=== PATIENT | male | born 1945 | race Caucasian/White ===

== ENCOUNTER 2018-07-18 11:33 | Inpatient (IN) ==
[2018-07-18] MEDS: Sod Chloride 0.9% Inj 1,000 ML IV.CONT SCH (11:59)
--- NOTE | 2018-07-18 12:04 | ED ---
HPI General Chief Complaint: Stroke Alert Stated Complaint: AMS Time Seen by Provider: 07/18/18 11:39 Source: patient Mode of arrival: EMS Limitations: altered mental status History of Present Illness HPI Narrative: 73-year-old male presents by ambulance. Last seen normal at 9: 30 PM last night. Patient is having difficulty answering questions. When you ask him what his name is it takes him 2 or 3 times and then he will say Fabrice. When you ask him to perform a task he starts asking you about something related to yourself and does not follow the command. Patient denies pain but is a poor historian on initial evaluation. Vitals were stable in route. Related Data Home Medications Medication Instructions Recorded Confirmed aspirin 81 mg PO DAILY 07/18/18 07/18/18 lisinopril 10 mg PO DAILY 07/18/18 07/18/18 metoprolol succinate 50 mg PO DAILY 07/18/18 07/18/18 nitroglycerin 0.4 mg SUBLINGUAL Q5-15M PRN 07/18/18 07/18/18 Allergies Allergy/AdvReac Type Severity Reaction Status Date / Time meperidine AdvReac Intermediate Nausea/Vomi Unverified 04/20/17 01:56 ting Review of Systems ROS Unobtainable ROS Unobtainable: unobtainable due to mental status PMFSH History History Provided By: Family Member (stroke, hypertension) Medical History Medical History CVA (cerebral vascular accident) (Acute) HTN (hypertension) (Acute) Heart attack (Acute) Surgical History Surgical History Hx of heart artery stent (Acute) Social History Social History Substance History: No History of Abuse Second Hand Smoke Exposure: Yes Smoking Status: Current every day smoker Tobacco Type: Cigarettes How Often Do You Have a Drink Containing Alcohol: Never Recent Out of Country Travel within the Last 8 Weeks: No Exam Narrative Exam Narrative: GENERAL: 73 y/o male in no apparent distress SKIN: Focused skin assessment warm/dry. HEAD: Atraumatic. Normocephalic. EYES: Pupils equal and round. No scleral icterus. No injection or drainage. ENT: No nasal bleeding or discharge. Mucous membranes pink and moist. NECK: Trachea midline. CARDIOVASCULAR: irregular rate and rhythm. RESPIRATORY: No accessory muscle use. Clear to auscultation. Breath sounds equal bilaterally. GASTROINTESTINAL: Abdomen soft, non-tender, nondistended. MUSCULOSKELETAL: No obvious deformities. No clubbing. No cyanosis. NEUROLOGICAL: Awake and alert to name. Motor grossly within normal limits. Patient having difficulty following questioning and you have to ask him multiple times Course Reevaluation(s) Reevaluation #1: arrives at bedside and states last seen normal last night at 9:30 PM. She states he was saying random comments when she would ask him how he was doing he was not acting him well so she called the ambulance. She states he has a history of stroke 3 years ago and has been off all of his medication for the past 5 days including his full dose aspirin. She was updated and agrees to plan Consultations Consultation #1: dr abdi states to check cta and perfusion with stroke alert Consultation #2: dr abdi updated about imaging and states to admit, check mris and give aspirin, will eval for other anticoagulation after mri Consultation #3: resident team agrees to admit Initial Documented Vital Signs Temperature 97.8 F 07/18/18 11:33 Pulse Rate 73 07/18/18 11:33 Respiratory Rate 19 07/18/18 11:33 Blood Pressure 152/93 H 07/18/18 11:33 Pulse Oximetry 94 L 07/18/18 11:33 Last Documented Vital Signs Temperature 97.8 F 07/18/18 11:33 Pulse Rate 72 07/18/18 13:52 Respiratory Rate 12 07/18/18 13:52 Blood Pressure 150/91 H 07/18/18 13:52 Pulse Oximetry 95 07/18/18 13:52 NIH Stroke Scale NIHSS Time Completed NIHSS Time Completed: 12:04 NIH Stroke Scale Level of Consciousness: 0-Alert Orientation Questions: 1-One task correct Responds to Commands: 1-One task correct Gaze Eye Movement: 0-Horizontal movement WNL Visual Pike: 0-No visual field defect Facial Movement: 0-Normal Motor Functions Arm LEFT: 0-No drift Motor Functions Arm RIGHT: 0-No drift Motor Functions Leg LEFT: 0-No drift Motor Functions Leg RIGHT: 0-No drift Limb Ataxia: 0-No ataxia Sensory Loss: 0-No sensory loss Best Language: 1-Mild aphasia Articulation: 0-Normal Extinction or Inattention Sensory: 0-Absent Total: 3 Medical Decision Making MDM Narrative Medical decision making narrative: Patient symptoms started last night at 930. Discussed with neurologist and stroke alert was called, will follow Medical Screen Exam Complete: Yes Emergency Medical Condition: Yes Differential Diagnosis Differential Diagnosis: Stroke, TIA, hyponatremia, UTI, hepatic encephalopathy Lab Data Lab results reviewed: Yes I reviewed the patient's lab results. Result diagrams: 07/18/18 11:45 07/18/18 11:45 Lab Results 07/18/18 07/18/18 07/18/18 Range/Units 11:45 11:45 11:45 WBC 8.7 (4.0-11.0) th/mm3 RBC 4.81 (4.50-5.90) mil/mm3 Hgb 15.0 (13.0-17.0) gm/dL POC Hgb (Calc) 14.6 (13.0-17.0) g/dL Hct 45.1 (39.0-51.0) % POC Hct 43.0 (39-51.0) % MCV 93.8 (80.0-100.0) fL MCH 31.2 (27.0-34.0) pg MCHC 33.2 (32.0-36.0) % RDW 14.4 (11.6-17.2) % Plt Count 278 (150-450) th/mm3 MPV 8.1 (7.0-11.0) fL Neut % (Auto) 76.2 H (16.0-70.0) % Lymph % (Auto) 14.3 (9.0-44.0) % [place] % (Auto) 7.2 (0.0-8.0) % Eos % (Auto) 1.7 (0.0-4.0) % Baso % (Auto) 0.6 (0.0-2.0) % Neut # (Auto) 6.6 (1.8-7.7) th/mm3 Lymph # (Auto) 1.3 (1.0-4.8) th/mm3 [place] # (Auto) 0.6 (0.0-0.9) th/mm3 Eos # (Auto) 0.1 (0.0-0.4) th/mm3 Baso # (Auto) 0.1 (0.0-0.2) th/mm3 WBC Differential . Differential Comment Auto diff final PT 10.8 (9.8-11.6) sec INR 1.1 Ratio APTT 30.6 (23.4-31.7) sec Fibrinogen 370 (227-377) mg/dL POC Sodium 143 (137-144) mmol/L Sodium 142 (136-145) meq/L POC Potassium 4.5 (3.6-5.0) mmol/L Potassium 4.5 (3.5-5.1) meq/L POC Chloride 103 (102-111) mmol/L Chloride 110 H (98-107) meq/L Carbon Dioxide 26.8 (21.0-32.0) meq/L Anion Gap 5 (5-15) meq/L POC BUN 13 (5-21) mg/dL BUN 14 (7-18) mg/dL Creatinine 0.94 (0.60-1.30) mg/dL POC Creatinine 1.0 (0.6-1.3) mg/dL Estimated GFR 79 L (>89) mL/min POC Glucose 86 (68-110) mg/dL Random Glucose 87 (74-106) mg/dL Calcium 8.1 L (8.5-10.1) mg/dL Ammonia (11-32) mcmol/L Total Creatine Kinase 82 (39-308) U/L Troponin I Less than 0.02 L (0.02-0.05) ng/mL Urine Color (Yellw/Straw) Urine Clarity (Clear) Urine pH (5.0-8.5) Ur Specific [place] (1.002-1.035) Urine Protein (Neg-Trace) mg/dL Urine Glucose (UA) (Negative) mg/dL Urine Ketones (Negative) mg/dL Urine Occult Blood (Negative) Urine Nitrate (Negative) Urine Bilirubin (Negative) Urine Urobilinogen (Less than 2) mg/dL Ur Leukocyte Esterase (Negative) Urine RBC (0-3) /hpf Urine WBC (0-5) /hpf Urine Bacteria (None) /hpf Micro UA Comment Ur Microscopic Review Urine Culture Comments Urine Opiates Screen (Neg) Ur Barbiturates Screen (Neg) Ur Amphetamines Screen (Neg) U Benzodiazepines Scrn (Neg) Urine Cocaine Screen (Neg) U Cannabinoids Screen (Neg) Blood Type Blood Type Recheck Antibody Screen 07/18/18 07/18/18 07/18/18 Range/Units 11:45 12:36 Unknown WBC (4.0-11.0) th/mm3 RBC (4.50-5.90) mil/mm3 Hgb (13.0-17.0) gm/dL POC Hgb (Calc) (13.0-17.0) g/dL Hct (39.0-51.0) % POC Hct (39-51.0) % MCV (80.0-100.0) fL MCH (27.0-34.0) pg MCHC (32.0-36.0) % RDW (11.6-17.2) % Plt Count (150-450) th/mm3 MPV (7.0-11.0) fL Neut % (Auto) (16.0-70.0) % Lymph % (Auto) (9.0-44.0) % [place] % (Auto) (0.0-8.0) % Eos % (Auto) (0.0-4.0) % Baso % (Auto) (0.0-2.0) % Neut # (Auto) (1.8-7.7) th/mm3 Lymph # (Auto) (1.0-4.8) th/mm3 [place] # (Auto) (0.0-0.9) th/mm3 Eos # (Auto) (0.0-0.4) th/mm3 Baso # (Auto) (0.0-0.2) th/mm3 WBC Differential Differential Comment PT (9.8-11.6) sec INR Ratio APTT (23.4-31.7) sec Fibrinogen (227-377) mg/dL POC Sodium (137-144) mmol/L Sodium (136-145) meq/L POC Potassium (3.6-5.0) mmol/L Potassium (3.5-5.1) meq/L POC Chloride (102-111) mmol/L Chloride (98-107) meq/L Carbon Dioxide (21.0-32.0) meq/L Anion Gap (5-15) meq/L POC BUN (5-21) mg/dL BUN (7-18) mg/dL Creatinine (0.60-1.30) mg/dL POC Creatinine (0.6-1.3) mg/dL Estimated GFR (>89) mL/min POC Glucose (68-110) mg/dL Random Glucose (74-106) mg/dL Calcium (8.5-10.1) mg/dL Ammonia 14 (11-32) mcmol/L Total Creatine Kinase (39-308) U/L Troponin I (0.02-0.05) ng/mL Urine Color (Yellw/Straw) Urine Clarity (Clear) Urine pH (5.0-8.5) Ur Specific [place] (1.002-1.035) Urine Protein (Neg-Trace) mg/dL Urine Glucose (UA) (Negative) mg/dL Urine Ketones (Negative) mg/dL Urine Occult Blood (Negative) Urine Nitrate (Negative) Urine Bilirubin (Negative) Urine Urobilinogen (Less than 2) mg/dL Ur Leukocyte Esterase (Negative) Urine RBC (0-3) /hpf Urine WBC (0-5) /hpf Urine Bacteria (None) /hpf Micro UA Comment Ur Microscopic Review Urine Culture Comments Urine Opiates Screen Neg (Neg) Ur Barbiturates Screen Neg (Neg) Ur Amphetamines Screen Neg (Neg) U Benzodiazepines Scrn Neg (Neg) Urine Cocaine Screen Neg (Neg) U Cannabinoids Screen Neg (Neg) Blood Type O Negative Blood Type Recheck Required Antibody Screen Negative 07/18/18 Range/Units Unknown WBC (4.0-11.0) th/mm3 RBC (4.50-5.90) mil/mm3 Hgb (13.0-17.0) gm/dL POC Hgb (Calc) (13.0-17.0) g/dL Hct (39.0-51.0) % POC Hct (39-51.0) % MCV (80.0-100.0) fL MCH (27.0-34.0) pg MCHC (32.0-36.0) % RDW (11.6-17.2) % Plt Count (150-450) th/mm3 MPV (7.0-11.0) fL Neut % (Auto) (16.0-70.0) % Lymph % (Auto) (9.0-44.0) % [place] % (Auto) (0.0-8.0) % Eos % (Auto) (0.0-4.0) % Baso % (Auto) (0.0-2.0) % Neut # (Auto) (1.8-7.7) th/mm3 Lymph # (Auto) (1.0-4.8) th/mm3 [place] # (Auto) (0.0-0.9) th/mm3 Eos # (Auto) (0.0-0.4) th/mm3 Baso # (Auto) (0.0-0.2) th/mm3 WBC Differential Differential Comment PT (9.8-11.6) sec INR Ratio APTT (23.4-31.7) sec Fibrinogen (227-377) mg/dL POC Sodium (137-144) mmol/L Sodium (136-145) meq/L POC Potassium (3.6-5.0) mmol/L Potassium (3.5-5.1) meq/L POC Chloride (102-111) mmol/L Chloride (98-107) meq/L Carbon Dioxide (21.0-32.0) meq/L Anion Gap (5-15) meq/L POC BUN (5-21) mg/dL BUN (7-18) mg/dL Creatinine (0.60-1.30) mg/dL POC Creatinine (0.6-1.3) mg/dL Estimated GFR (>89) mL/min POC Glucose (68-110) mg/dL Random Glucose (74-106) mg/dL Calcium (8.5-10.1) mg/dL Ammonia (11-32) mcmol/L Total Creatine Kinase (39-308) U/L Troponin I (0.02-0.05) ng/mL Urine Color Yellow (Yellw/Straw) Urine Clarity Clear (Clear) Urine pH 7.0 (5.0-8.5) Ur Specific [place] 1.054 H (1.002-1.035) Urine Protein Negative (Neg-Trace) mg/dL Urine Glucose (UA) Negative (Negative) mg/dL Urine Ketones Negative (Negative) mg/dL Urine Occult Blood Negative (Negative) Urine Nitrate Negative (Negative) Urine Bilirubin Negative (Negative) Urine Urobilinogen 4 or greater (Less than 2) mg/dL Ur Leukocyte Esterase Small H (Negative) Urine RBC 8 H (0-3) /hpf Urine WBC 8 H (0-5) /hpf Urine Bacteria Rare H (None) /hpf Micro UA Comment Cath-culture ind Ur Microscopic Review Not Reportable Urine Culture Comments Cath-cult indicated Urine Opiates Screen (Neg) Ur Barbiturates Screen (Neg) Ur Amphetamines Screen (Neg) U Benzodiazepines Scrn (Neg) Urine Cocaine Screen (Neg) U Cannabinoids Screen (Neg) Blood Type Blood Type Recheck Antibody Screen Imaging Data Attestation: I personally reviewed and interpreted this imaging study as follows : Radiologist's impression: Chest X-Ray 07/18/18 11:41 CONCLUSION: Chronic interstitial changes within the parenchyma and cardiomegaly. No acute abnormality. Head CT 07/18/18 11:41 CONCLUSION: 1. Microvascular ischemic demyelinative change. No acute abnormality identified by noncontrast CT imaging. Report was called by [Dr. Lobo Gauthier to Dr. Mccarthy at 12:12 PM] Head CTA 07/18/18 11:41 CONCLUSION: 1. No evidence of carotid/vertebral stenosis or occlusion 2. Nonspecific mediastinal lymphadenopathy. 3. Emphysematous changes within the visualized lung apices. Report was called by Dr. Dickerson] to Dr. Abdi at 12:30 PM on 07/18/2018. Neck CTA 07/18/18 11:41 CONCLUSION: No carotid stenosis CT CAD 07/18/18 11:42 CONCLUSION: Physiological brain perfusion parameters with RAPID analysis as above. Study demonstrates a small area of elevated mean cortical transit time in the right posterior parietal cortex. This would indicate a small area of extremely cortex correspond to this region. The decision for consideration of therapy is multi factorial and multi disciplinary relying on subjective and objective clinical data. This data is not construed or intended to be the sole determinant of treatment eligibility. Discharge Plan Discharge Disposition Patient Disposition: 30 Still Patient Discharge Details Diagnosis: Altered mental status, Speech abnormality, Atrial flutter Physicians Team ED Provider: Kellie Carrera Primary Care Provider: UNKNOWN, Other Providers: Yunior Abdi Rxs /Orders / Referrals /Forms Prescriptions: No Action metoprolol succinate 50 mg Tablet Extended Release 24 Hr 50 mg PO DAILY RF: 0 lisinopril 10 mg Tablet 10 mg PO DAILY RF: 0 nitroglycerin 0.4 mg Tablet, Sublingual 0.4 mg SUBLINGUAL Q5-15M PRN (Reason: Chest Pain) RF: 0 aspirin 81 mg Tablet,Chewable 81 mg PO DAILY RF: 0 Status ED Status: Admitted Patient
[2018-07-18 12:12] LABS: Baso # (Auto) 0.1 th/mm3 (0.0-0.2); Baso % (Auto) 0.6 % (0.0-2.0); Eos # (Auto) 0.1 th/mm3 (0.0-0.4); Eos % (Auto) 1.7 % (0.0-4.0); Hematocrit 45.1 % (39.0-51.0); Lymph # (Auto) 1.3 th/mm3 (1.0-4.8); Lymph % (Auto) 14.3 % (9.0-44.0); Mean Corpuscular HGB Conc 33.2 % (32.0-36.0); Mean Corpuscular Hemoglobin 31.2 pg (27.0-34.0); Mean Corpuscular Volume 93.8 fL (80.0-100.0); Mean Platelet Volume 8.1 fL (7.0-11.0); Mono # (Auto) 0.6 th/mm3 (0.0-0.9); Mono % (Auto) 7.2 % (0.0-8.0); Neut # (Auto) 6.6 th/mm3 (1.8-7.7); Neut % (Auto) 76.2 % (16.0-70.0); Platelet Count 278 th/mm3 (150-450); Red Blood Count 4.81 mil/mm3 (4.50-5.90); Red Cell Distribution Width 14.4 % (11.6-17.2); White Blood Count 8.7 th/mm3 (4.0-11.0)
--- NOTE | 2018-07-18 12:16 | CT ---
EXAM DATE: 07/18/2018 12:07 PM EST AGE/SEX: 73 years / Male INDICATIONS: Stroke alert, confusion. CLINICAL DATA: This is the patient's initial encounter. Patient reports that signs and symptoms have been present for 1 day and indicates a pain score of Nonresponsive. MEDICAL/SURGICAL HISTORY: Non-responsive. Non-responsive. RADIATION DOSE: 40.82 CTDI (mGy) COMPARISON: C, CTA HEAD W CONTRAST W 3D, 07/18/2018. . TECHNIQUE: CT of the head without contrast. Using automated exposure control and adjustment of the mA and/or kV according to patient size, radiation dose was kept as low as reasonably achievable to ob tain optimal diagnostic quality images. DICOM format image data is available electronically for revi ew and comparison. FINDINGS: Cerebrum: The ventricles are normal for age. No evidence of midline shift, mass lesion, hemorrhage or acute infarction. No extraaxial fluid collections are seen. There is decreased attenuation in the periventricular white matter suggesting microvascular ischemic demyelinative change. Posterior Fossa: The cerebellum and brainstem are intact. The 4th ventricle is midline. The cerebe llopontine angle is unremarkable. Extracranial: The visualized portion of the orbits is intact. Skull: The calvaria is intact. No evidence of skull fracture. CONCLUSION: 1. Microvascular ischemic demyelinative change. No acute abnormality identified by noncontrast CT im aging. Report was called by [Dr. Lobo Gauthier to Dr. Mccarthy at 12:12 PM] Electronically signed by: Darryl Gauthier MD 07/18/2018 12:15 PM EST
[2018-07-18 12:24] LABS: Activated Partial Thrombo Time 30.6 sec (23.4-31.7); INR 1.1 Ratio; Prothrombin Time 10.8 sec (9.8-11.6)
[2018-07-18 12:28] LABS: Anion Gap 5 meq/L (5-15); Blood Urea Nitrogen 14 mg/dL (7-18); Calcium 8.1 mg/dL (8.5-10.1); Carbon Dioxide 26.8 meq/L (21.0-32.0); Chloride 110 meq/L (98-107); Glomerular Filtration Rate 79 mL/min (>89); Glucose,Random 87 mg/dL (74-106); Potassium 4.5 meq/L (3.5-5.1); Sodium 142 meq/L (136-145)
--- NOTE | 2018-07-18 12:32 | CT ---
EXAM DATE: 07/18/2018 12:23 PM EST AGE/SEX: 73 years / Male INDICATIONS: Stroke alert, confusion. CLINICAL DATA: This is the patient's initial encounter. Patient reports that signs and symptoms have been present for 1 day and indicates a pain score of Nonresponsive. MEDICAL/SURGICAL HISTORY: Non-responsive. Non-responsive. RADIATION DOSE: 314.22 CTDI (mGy) COMPARISON: No prior exams available for comparison. TECHNIQUE: CT of the head after intravenous administration of 40 ml Visipaque 320 (iodixanol) nonio sae water-soluble contrast as a single exam dose. Using automated exposure control and adjustment of the mA and/or kV according to patient size, radiation dose was kept as low as reasonably achievable to obtain optimal diagnostic quality images. DICOM format image data is available electronically for review and comparison. FINDINGS: 1. CBF (<30%) Volume (ml): 0ml 2. Perfusion (Tmax>6.0s) Volume (ml): 29ml 3. Mismatch Volume (ml) (Tmax>6.0 - CBF): 29ml CONCLUSION: Physiological brain perfusion parameters with RAPID analysis as above. Study demonstrates a small are a of elevated mean cortical transit time in the right posterior parietal cortex. This would indicate a small area of extremely cortex correspond to this region. The decision for consideration of therapy is multi factorial and multi disciplinary relying on subjec tive and objective clinical data. This data is not construed or intended to be the sole determinant of treatment eligibility. Electronically signed by: Darryl Gauthier MD 07/18/2018 12:31 PM EST
--- NOTE | 2018-07-18 12:35 | CT ---
EXAM DATE: 07/18/2018 12:26 PM EST AGE/SEX: 73 years / Male INDICATIONS: Stroke alert, confusion. CLINICAL DATA: This is the patient's initial encounter. Patient reports that signs and symptoms have been present for 1 day and indicates a pain score of Nonresponsive. MEDICAL/SURGICAL HISTORY: Non-responsive. Non-responsive. RADIATION DOSE: 28.68 CTDI (mGy) COMPARISON: [facility] – [place], [place], CT HEAD W/O CONTRAST, 07/18/2018. . TECHNIQUE: Volumetric scanning was performed using a multi-row detector CT scanner during bolus infu williams of 60 ml Visipaque 320 (iodixanol) nonionic water-soluble contrast as a cumulative dose for mul tiple exams. The data was post processed with a variety of visualization algorithms including full volume maximum intensity projection, multi-planar sliding thin slab reformation, curved planar reform ation, and surface rendering techniques. Using automated exposure control and adjustment of the mA a nd/or kV according to patient size, radiation dose was kept as low as reasonably achievable to obtain optimal diagnostic quality images. DICOM format image data is available electronically for review a nd comparison. FINDINGS: There is excellent visualization of the major intracranial arteries out to the second-order branch ve ssels. There is no evidence for aneurysm, vessel truncation or stenosis, and no evidence for vascula r malformation. There is a patent left posterior communicating artery. Emphysematous changes are note d within the visualized lung apices. Nonspecific mediastinal lymphadenopathy is also noted. CONCLUSION: 1. No evidence of carotid/vertebral stenosis or occlusion 2. Nonspecific mediastinal lymphadenopathy. 3. Emphysematous changes within the visualized lung apices. Report was called by Dr. Dickerson] to Dr. Copeland at 12:30 PM on 07/18/2018. Electronically signed by: Artem Dickerson MD 07/18/2018 12:34 PM EST
--- NOTE | 2018-07-18 12:46 | XR ---
EXAM DATE: 07/18/2018 12:42 PM EST AGE/SEX: 73 years / Male INDICATIONS: Stroke alert, slurred speech, weakness, confusion. CLINICAL DATA: This is the patient's initial encounter. Patient reports that signs and symptoms have been present for 1 day and indicates a pain score of 0/10. MEDICAL/SURGICAL HISTORY: None. None. COMPARISON: No prior exams available for comparison. FINDINGS: The heart is enlarged. There are chronic appearing interstitial changes within the parenchyma. No ple ural effusion is seen. Visualized bony structures are grossly intact. CONCLUSION: Chronic interstitial changes within the parenchyma and cardiomegaly. No acute abnormality. Electronically signed by: Darryl Gauthier MD 07/18/2018 12:44 PM EST
[2018-07-18 12:51] LABS: Creatine Kinase 82 U/L (39-308)
--- NOTE | 2018-07-18 13:13 | CT ---
EXAM DATE: 07/18/2018 1:05 PM EST AGE/SEX: 73 years / Male INDICATIONS: Confusion CLINICAL DATA: This is the patient's initial encounter. Patient reports that signs and symptoms have been present for 1 day and indicates a pain score of Nonresponsive. MEDICAL/SURGICAL HISTORY: Non-responsive. Non-responsive. RADIATION DOSE: 28.68 CTDI (mGy) ; Combined studies COMPARISON: No prior exams available for comparison. TECHNIQUE: Volumetric scanning was performed using a multirow detector CT scanner during bolus infus ion of 60 ml Visipaque 320 (iodixanol) nonionic water-soluble contrast as a cumulative dose for mult iple exams. The data was postprocessed with a variety of visualization algorithms including full-vo lume maximum intensity projection, multiplanar sliding thin-slab reformation, curved-planar reformati on, and surface-rendering techniques. Using automated exposure control and adjustment of the mA and/ or kV according to patient size, radiation dose was kept as low as reasonably achievable to obtain op timal diagnostic quality images. DICOM format image data is available electronically for review and comparison. Percent stenosis is calculated using the diameter of the stenotic region over the diameter of the nor mal distal internal carotid artery. FINDINGS: Aortic Arch: Truncus arch anatomy identified. No significant arch vessel stenosis. Right Carotid: The common carotid artery is intact. The carotid bulb has a normal configuration wit hout ulceration or narrowing. The internal carotid artery lumen is smooth without stenosis. The ext ernal carotid artery is intact. Left Carotid: The common carotid artery is intact. The carotid bulb has a normal configuration with out ulceration or narrowing. The internal carotid artery lumen is smooth without stenosis. The exte rnal carotid artery is intact. Vertebrals: The vertebral arteries have a symmetric diameter. No stenotic lesions are seen. CONCLUSION: No carotid stenosis Electronically signed by: Richi Skinner MD 07/18/2018 1:11 PM EST
[2018-07-18] MEDS ORDERED: Aspirin 325 MG Tablet PO ONE ×2 (13:19→13:21)
[2018-07-18 13:50] LABS: Bacteria,Urine Rare /hpf; Bilirubin,Urine Negative (Negative); Clarity,Urine Clear (Clear); Color,Urine Yellow (Yellw/Straw); Glucose,Urine (UA) Negative (Negative); Leukocyte Esterase,Urine Small (Negative); Nitrite,Urine Negative (Negative); Specific Gravity,Urine 1.054 (1.002-1.035); Urobilinogen,Urine 4 or Greater mg/dL (Less than 2)
[2018-07-18 13:51] LABS: Amphetamine Screen,Urine Neg (Neg); Barbiturate Screen,Urine Neg (Neg); Cannabinoid Screen,Urine Neg (Neg); Cocaine Screen,Urine Neg (Neg)
[2018-07-18 13:52] LABS: Opiate Screen,Urine Neg (Neg)
--- NOTE | 2018-07-18 14:22 | P.HPFP ---
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 History is provided by as the patient is acutely confused. He responds to questions but the answers are inappropriate. Patient was in his normal state of health at 9:30 PM when his last saw him. She reports that he woke up around 8 AM and appeared to be normal when the went back into his bedroom about 10:30 AM he just kept repeating "Are you okay?" did not notice any other residual deficits. Patient had a stroke 4 years ago with residual deficit of some slurred speech. He has had 4 myocardial infarctions with the last one being 8-10 years ago with an unknown arrhythmia. 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 He has been out of his medications for about 5 days. Primary care Provider: [facility] in [place] PMHx: CVA IA osteoarthritis of spine and chronic pain HTN HLD PSurgHx: Emergency hernia surgery 2 years ago Back surgery at age 40 Meds: Plavix Statin BP meds Allegies: Demerol PFamHx: Mother - hx of polio, of a CVA Father - polio SocHx: Semi-retired on board of [employer] Lives in [place] Last long trip in November EtOH - 1 drink/mo Tpbacco - 1/2ppd x40 years Drugs - denies <Ct Braswell - 07/18/18 14:48> - Diagnosis (1) Altered mental status (2) Hypertension (3) Hyperlipidemia (4) Atrial flutter <Kev Barajas - 07/18/18 19:37> (1) Altered mental status (2) Hypertension (3) Hyperlipidemia (4) Atrial flutter <Ct Braswell 07/18/18 15:33> Inpatient Certification: I certify that the inpatient services were ordered in accordance with Medicare regulations governing the order. This includes certification that hospital inpatient services are reasonable and necessary and in the case of services not specified as inpatient-only under 42 CFR 419.22(n), that they are appropriately provided as inpatient services in accordance to with the 2-midnight benchmark under 43 CFR 412.3(e) <Kev Barajas - 07/18/18 19:37> I certify that the inpatient services were ordered in accordance with Medicare regulations governing the order. This includes certification that hospital inpatient services are reasonable and necessary and in the case of services not specified as inpatient-only under 42 CFR 419.22(n), that they are appropriately provided as inpatient services in accordance to with the 2-midnight benchmark under 43 CFR 412.3(e) <Ct Braswell - 07/18/18 14:22> Review of Systems unobtainable due to mental status <Ct Braswell - 07/18/18 15:01> PMFSH - History History Provided By: Family Member (stroke, hypertension) <Ct Braswell - 07/18/18 14:22> - Medical History Medical History: Medical History (Last Updated 07/18/18 @ 12:17 by Maral Heath) CVA (cerebral vascular accident) HTN (hypertension) Heart attack <Kev Barajas - 07/18/18 19:37> Medical History (Last Updated 07/18/18 @ 12:17 by Maral Heath) CVA (cerebral vascular accident) HTN (hypertension) Heart attack <Ct Braswell - 07/18/18 14:22> - Surgical History Surgical History: Surgical History (Last Updated 07/18/18 @ 12:17 by Maral Heath) Hx of heart artery stent <Kev Barajas - 07/18/18 19:37> Surgical History (Last Updated 07/18/18 @ 12:17 by Maral Heath) Hx of heart artery stent <Ct Braswell - 07/18/18 14:22> - Social History I have reviewed the patient's Social History: Yes <Ct Braswell 15:01> - Tobacco History Second Hand Smoke Exposure: Yes <Ct Braswell - 07/18/18 14:22> Tobacco Use In Past 30 Days: Yes <Ct Braswell - 07/18/18 14:22> Smoking Status: Current every day smoker <Ct Braswell - 07/18/18 14:22> Tobacco Type: Cigarettes <Ct Braswell - 07/18/18 14:22> - Alcohol History How Often Do You Have a Drink Containing Alcohol: Never <Ct Braswell - 07/18/18 14:22> - Substance Use History Substance History: No History of Abuse <FrenchCt Lamar - 07/18/18 14:22> - Travel History History of Recent Travel: No <IrvinjeanCt Willard - 07/18/18 15:01> Recent Travel Out of the Country Within the Last 8 Weeks: No <IrvinjeanCt Lamar [place] 07/18/18 14:22> - Immunization History Tetanus Immunization: Unsure <IrvinjeanCt Lamar - 07/18/18 14:22> Medications and Allergies Allergies Allergy/AdvReac Type Severity Reaction Status Date / Time meperidine AdvReac Intermediate Nausea/Vomi Verified 07/18/18 16:02 ting <Kev Barajas - 07/18/18 19:37> Home Medications Medication Instructions Recorded Confirmed Type aspirin 81 mg PO DAILY 07/18/18 07/18/18 History lisinopril 10 mg PO DAILY 07/18/18 07/18/18 History metoprolol succinate 50 mg PO DAILY 07/18/18 07/18/18 History nitroglycerin 0.4 mg SUBLINGUAL Q5-15M PRN 07/18/18 07/18/18 History <Kev Barajas - 07/18/18 19:37> Active Medications: Active Medications Acetaminophen (Tylenol) 650 mg PO Q4H PRN PRN Reason: Temp > 100.4 Apixaban (Eliquis) 2.5 mg PO BID CHLOÉ Aspirin (Ecotrin) 81 mg PO DAILY CHLOÉ Sodium Chloride (Ns Inj) 1,000 mls @ 70 mls/hr IV.CONT .[id number] CHLOÉ Last Admin: 07/18/18 11:59 Dose: 70 mls/hr Metoprolol Succinate (Toprol Xl) 50 mg PO DAILY [facility] Last Admin: 07/18/18 16:46 Dose: 50 mg Ondansetron HCl (Zofran Inj) 4 mg IV.PUSH Q6H PRN PRN Reason: NAUSEA OR VOMITING Senna/Docusate Sodium (Devi-Colace) 1 tab PO BID [facility] <Kev Barajas - 07/18/18 19:37> Active Medications Sodium Chloride (Ns Inj) 1,000 mls @ 70 mls/hr IV.CONT .[id number] [facility] Last Admin: 07/18/18 11:59 Dose: 70 mls/hr Ceftriaxone Sodium 1,000 mg/ (Sodium Chloride) 100 mls @ 200 mls/hr IV.SIG ONCE ONE Stop: 07/18/18 14:26 <Ct Braswell 07/18/18 14:22> Exam Vital signs: Vital Signs 07/18/18 11:33 07/18/18 12:15 07/18/18 13:52 Temperature 97.8 F Pulse Rate 73 72 72 Respiratory Rate 19 17 12 Blood Pressure 152/93 H 164/99 H 150/91 H Pulse Oximetry 94 L 95 95 07/18/18 16:48 Temperature 97.9 F Pulse Rate 69 Respiratory Rate 18 Blood Pressure 160/88 H Pulse Oximetry 99 Intake & Output 07/18/18 07/18/18 07/19/18 06:59 18:59 06:59 Intake Total 100 / 100 Balance 100 / 100 Weight 84.1 kg Intake: IV 100 / 100 Rocephin Inj 1,000 MG In NS Inj 100 / 100 100 ML @ 200 mls/hr IV.SIG ONCE ONE Rx#:[id number] <Kev Barajas - 07/18/18 19:37> Vital Signs 07/18/18 11:33 07/18/18 12:15 07/18/18 13:52 Temperature 97.8 F Pulse Rate 73 72 72 Respiratory Rate 19 17 12 Blood Pressure 152/93 H 164/99 H 150/91 H Pulse Oximetry 94 L 95 95 Intake & Output 07/17/18 07/18/18 07/18/18 18:59 06:59 18:59 Weight 84.1 kg <Ct Braswell - 07/18/18 14:22> Narrative: GENERAL: well developed, NAD. NEUROLOGICAL: Speech- Fluent. No dysarthria or dysphasia. Poor comprehension. Cranial nerves- Patient unable to follow commands for full neuro exam. Motor/sensory/reflexes- Face- No facial droop. No tongue deviation. Extremities- Moves all extremities. Patient unable to follow commands for strength testing. Pronator drift test-Patient unable to follow commands Rapid alternating movements-Patient unable to follow commands No hemispace neglect. Unable to repeat phrases. EYES: PERRLA. EOMI. Lids and conjunctivae reveal no gross abnormality. No scleral itcterus. ENT: Hearing adequate. MMM. OP/OC clear. No cervical or supraclavicular LAD. RESPIRATORY: Decreased breath sounds as patient is unable to follow commands to take deep breaths CARDIOVASCULAR: RRR, no m/r/g. Radial and DP pulses 2+ and symmetric bilaterally. Brisk capillary refill. ABDOMEN: S/NT/ND. Bowel sounds present. No masses or pulsations present. No hepatosplenomegaly. EXTREMITIES: No remarkable dependent edema or varicosities. No clubbing, cyanosis, or erythema. BACK: Large mass in the central portion of his back ( reports this is not new and has been present since his back surgery at age 40) MUSCULOSKELETAL: No calf tenderness. SKIN: Adequate skin turgor. <Ct Braswell - 07/18/18 15:01> Results - Labs Result diagrams: 07/18/18 11:45 07/18/18 11:45 <Kev Barajas - 07/18/18 19:37> Abnormal lab results 07/18/18 07/18/18 07/18/18 Range/Units 11:45 11:45 Unknown Neut % (Auto) 76.2 H (16.0-70.0) % Chloride 110 H (98-107) meq/L Estimated GFR 79 L (>89) mL/min Calcium 8.1 L (8.5-10.1) mg/dL Troponin I Less than 0.02 L (0.02-0.05) ng/mL Ur Specific [place] 1.054 H (1.002-1.035) Ur Leukocyte Esterase Small H (Negative) Urine RBC 8 H (0-3) /hpf Urine WBC 8 H (0-5) /hpf Urine Bacteria Rare H (None) /hpf Short CBC 07/18/18 Range/Units 11:45 WBC 8.7 (4.0-11.0) th/mm3 Hgb 15.0 (13.0-17.0) gm/dL Hct 45.1 (39.0-51.0) % Plt Count 278 (150-450) th/mm3 BMP 07/18/18 11:45 Sodium 142 Potassium 4.5 Chloride 110 H Carbon Dioxide 26.8 BUN 14 Creatinine 0.94 Calcium 8.1 L Cardiac Enzymes 07/18/18 Range/Units 11:45 Total Creatine Kinase 82 (39-308) U/L Troponin I Less than 0.02 L (0.02-0.05) ng/mL Urine 07/18/18 Range/Units Unknown Urine Color Yellow (Yellw/Straw) Urine Clarity Clear (Clear) Urine pH 7.0 (5.0-8.5) Ur Specific [place] 1.054 H (1.002-1.035) Urine Protein Negative (Neg-Trace) mg/dL Urine Glucose (UA) Negative (Negative) mg/dL <Kev Barajas K - 07/18/18 19:37> Abnormal lab results 07/18/18 07/18/18 07/18/18 Range/Units 11:45 11:45 Unknown Neut % (Auto) 76.2 H (16.0-70.0) % Chloride 110 H (98-107) meq/L Estimated GFR 79 L (>89) mL/min Calcium 8.1 L (8.5-10.1) mg/dL Troponin I Less than 0.02 L (0.02-0.05) ng/mL Ur Specific [place] 1.054 H (1.002-1.035) Ur Leukocyte Esterase Small H (Negative) Urine RBC 8 H (0-3) /hpf Urine WBC 8 H (0-5) /hpf Urine Bacteria Rare H (None) /hpf Short CBC 07/18/18 Range/Units 11:45 WBC 8.7 (4.0-11.0) th/mm3 Hgb 15.0 (13.0-17.0) gm/dL Hct 45.1 (39.0-51.0) % Plt Count 278 (150-450) th/mm3 BMP 07/18/18 11:45 Sodium 142 Potassium 4.5 Chloride 110 H Carbon Dioxide 26.8 BUN 14 Creatinine 0.94 Calcium 8.1 L Cardiac Enzymes 07/18/18 Range/Units 11:45 Total Creatine Kinase 82 (39-308) U/L Troponin I Less than 0.02 L (0.02-0.05) ng/mL Urine 07/18/18 Range/Units Unknown Urine Color Yellow (Yellw/Straw) Urine Clarity Clear (Clear) Urine pH 7.0 (5.0-8.5) Ur Specific [place] 1.054 H (1.002-1.035) Urine Protein Negative (Neg-Trace) mg/dL Urine Glucose (UA) Negative (Negative) mg/dL <Ct Braswell - 07/18/18 14:22> - Imaging Impressions Head MRI 07/18/18 00:00 CONCLUSION: 1. Focal cortical signal abnormality is noted involving the left mid parietal lobe on the diffusion-weighted images indicating acute infarct in the left middle cerebral artery distribution. More subtle signal abnormality is noted involving the left posterior temporal cortex also within the left middle cerebral artery distribution. 2. Severe periventricular and subcortical white matter small vessel ischemic changes bilaterally. 3. No acute hemorrhage, midline shift or extra-axial bleed. 4. Scattered old tiny lacunar infarcts within the bilateral basal ganglia. Chest X-Ray 07/18/18 11:41 CONCLUSION: Chronic interstitial changes within the parenchyma and cardiomegaly. No acute abnormality. Head CT 07/18/18 11:41 CONCLUSION: 1. Microvascular ischemic demyelinative change. No acute abnormality identified by noncontrast CT imaging. Report was called by [Dr. Lobo Gauthier to Dr. Mccarthy at 12:12 PM] Head CTA 07/18/18 11:41 CONCLUSION: 1. No evidence of carotid/vertebral stenosis or occlusion 2. Nonspecific mediastinal lymphadenopathy. 3. Emphysematous changes within the visualized lung apices. Report was called by Dr. Goodwin to Dr. Copeland at 12:30 PM on 07/18/2018. Neck CTA 07/18/18 11:41 CONCLUSION: No carotid stenosis CT CAD 07/18/18 11:42 CONCLUSION: Physiological brain perfusion parameters with RAPID analysis as above. Study demonstrates a small area of elevated mean cortical transit time in the right posterior parietal cortex. This would indicate a small area of extremely cortex correspond to this region. The decision for consideration of therapy is multi factorial and multi disciplinary relying on subjective and objective clinical data. This data is not construed or intended to be the sole determinant of treatment eligibility. Head MRA 07/18/18 16:54 CONCLUSION: 1. Negative MRA of the [place]. <Kev Barajas Obey - 07/18/18 19:37> Impressions Chest X-Ray 07/18/18 11:41 CONCLUSION: Chronic interstitial changes within the parenchyma and cardiomegaly. No acute abnormality. Head CT 07/18/18 11:41 CONCLUSION: 1. Microvascular ischemic demyelinative change. No acute abnormality identified by noncontrast CT imaging. Report was called by [Dr. Lobo Gauthier to Dr. Mccarthy at 12:12 PM] Head CTA 07/18/18 11:41 CONCLUSION: 1. No evidence of carotid/vertebral stenosis or occlusion 2. Nonspecific mediastinal lymphadenopathy. 3. Emphysematous changes within the visualized lung apices. Report was called by Dr. Dickerson] to Dr. Copeland at 12:30 PM on 07/18/2018. Neck CTA 07/18/18 11:41 CONCLUSION: No carotid stenosis CT CAD 07/18/18 11:42 CONCLUSION: Physiological brain perfusion parameters with RAPID analysis as above. Study demonstrates a small area of elevated mean cortical transit time in the right posterior parietal cortex. This would indicate a small area of extremely cortex correspond to this region. The decision for consideration of therapy is multi factorial and multi disciplinary relying on subjective and objective clinical data. This data is not construed or intended to be the sole determinant of treatment eligibility. <Ct Braswell - 07/18/18 14:22> Caprini VTE Risk Assessment Caprini VTE Risk Assessment: Moderate/High Risk (score >= 2) <Ct Braswell - 07/18/18 15:01> Caprini Risk Assessment Model: Point Value = 1 Point Value = 2 Point Value = 3 Point Value = 5 Age 41-60 Minor surgery BMI > 25 kg/m2 Swollen legs Varicose veins or History of unexplained or recurrent spontaneous Oral contraceptives or hormone replacement Sepsis (< 1 month) Serious lung disease, including pneumonia (< 1 month) Abnormal pulmonary function Acute myocardial infarction Congestive heart failure (< 1 month) History of inflammatory bowel disease Medical patient at bed rest Age 61-74 Arthroscopic surgery Major open surgery (> 45 min) Laparoscopic surgery (> 45 min) Malignancy Confined to bed (> 72 hours) Immobilizing plaster cast Central venous access Age >= 75 History of VTE Family history of VTE Factor V Leiden Prothrombin [id number] Lupus anticoagulant Anticardiolipin antibodies Elevated serum homocysteine Heparin-induced thrombocytopenia Other congenital or acquired thrombophilia Stroke (< 1 month) Elective arthroplasty Hip, pelvis, or leg fracture Acute spinal cord injury (< 1 month) <Kev Barajas - 07/18/18 19:37> Point Value = 1 Point Value = 2 Point Value = 3 Point Value = 5 Age 41-60 Minor surgery BMI > 25 kg/m2 Swollen legs Varicose veins or History of unexplained or recurrent spontaneous Oral contraceptives or hormone replacement Sepsis (< 1 month) Serious lung disease, including pneumonia (< 1 month) Abnormal pulmonary function Acute myocardial infarction Congestive heart failure (< 1 month) History of inflammatory bowel disease Medical patient at bed rest Age 61-74 Arthroscopic surgery Major open surgery (> 45 min) Laparoscopic surgery (> 45 min) Malignancy Confined to bed (> 72 hours) Immobilizing plaster cast Central venous access Age >= 75 History of VTE Family history of VTE Factor V Leiden Prothrombin [id number] Lupus anticoagulant Anticardiolipin antibodies Elevated serum homocysteine Heparin-induced thrombocytopenia Other congenital or acquired thrombophilia Stroke (< 1 month) Elective arthroplasty Hip, pelvis, or leg fracture Acute spinal cord injury (< 1 month) <Ct Braswell - 07/18/18 14:22> Prophylaxis Regimen: Total Risk Factor Score Risk Level Prophylaxis Regimen 0-1 Low Early ambulation 2 Moderate Order ONE of the following: *Sequential Compression Device (SCD) *Heparin 5000 units SQ BID 3-4 Higher Order ONE of the following medications: *Heparin 5000 units SQ TID *Enoxaparin/Lovenox 40 mg SQ daily (WT < 150 kg, CrCl > 30 mL/min) *Enoxaparin/Lovenox 30 mg SQ daily (WT < 150 kg, CrCl > 10-29 mL/min) *Enoxaparin/Lovenox 30 mg SQ BID (WT < 150 kg, CrCl > 30 mL/min) AND/OR *Sequential Compression Device (SCD) 5 or more Highest Order ONE of the following medications: *Heparin 5000 units SQ TID (Preferred with Epidurals) *Enoxaparin/Lovenox 40 mg SQ daily (WT < 150 kg, CrCl > 30 mL/min) *Enoxaparin/Lovenox 30 mg SQ daily (WT < 150 kg, CrCl > 10-29 mL/min) *Enoxaparin/Lovenox 30 mg SQ BID (WT < 150 kg, CrCl > 30 mL/min) AND *Sequential Compression Device (SCD) <Kev Barajas - 07/18/18 19:37> Total Risk Factor Score Risk Level Prophylaxis Regimen 0-1 Low Early ambulation 2 Moderate Order ONE of the following: *Sequential Compression Device (SCD) *Heparin 5000 units SQ BID 3-4 Higher Order ONE of the following medications: *Heparin 5000 units SQ TID *Enoxaparin/Lovenox 40 mg SQ daily (WT < 150 kg, CrCl > 30 mL/min) *Enoxaparin/Lovenox 30 mg SQ daily (WT < 150 kg, CrCl > 10-29 mL/min) *Enoxaparin/Lovenox 30 mg SQ BID (WT < 150 kg, CrCl > 30 mL/min) AND/OR *Sequential Compression Device (SCD) 5 or more Highest Order ONE of the following medications: *Heparin 5000 units SQ TID (Preferred with Epidurals) *Enoxaparin/Lovenox 40 mg SQ daily (WT < 150 kg, CrCl > 30 mL/min) *Enoxaparin/Lovenox 30 mg SQ daily (WT < 150 kg, CrCl > 10-29 mL/min) *Enoxaparin/Lovenox 30 mg SQ BID (WT < 150 kg, CrCl > 30 mL/min) AND *Sequential Compression Device (SCD) <Ct Braswell - 07/18/18 14:22> Assessment and Plan - Assessment (1) Altered mental status Code(s): R41.82 - Altered mental status, unspecified Status: Acute (2) Hypertension Code(s): I10 - Essential (primary) hypertension Status: Acute (3) Hyperlipidemia Code(s): E78.5 - Hyperlipidemia, unspecified Status: Acute (4) Atrial flutter Code(s): I48.92 - Unspecified atrial flutter Status: Acute <Kev Barajas - 07/18/18 19:37> (1) Altered mental status Code(s): R41.82 - Altered mental status, unspecified Status: Acute Plan: 73 yo male smoker who presents with unintelligible speech and the inability to follow commands. There is no evidence of carotid stenosis via neck CTA. There is no evidence of ischemic or hemorrhagic changes in CT imaging thus far. CVA vs TIA vs dementia -Consult neurology, appreciate rec -MRI ordered per neurology recommendation -Will evaluate for anticoagulation after MRI is resulted -Allow for permissive HTN 24 hours -Lipid panel -Neuro checks Q2HX12, Q4H -PT -OT -Speech therapy (2) Hypertension Code(s): I10 - Essential (primary) hypertension Status: Acute Plan: - Hold home lisinopril for now - Allow for permissive HTN for 24 hours (3) Hyperlipidemia Code(s): E78.5 - Hyperlipidemia, unspecified Status: Acute Plan: -Patient was not on a statin at home. - Will check lipid panel - Will consider addition of atorvastatin 40 mg with a goal of LDL 40 (4) Atrial flutter Code(s): I48.92 - Unspecified atrial flutter Status: Acute Plan: Patient with rate controlled atrial flutter on EKG. - Cardiology consult, appreciate recs - Patient has metoprolol as a home medication, but has not been on the medication for about 5 days. Will restart metoprolol per cardiology recommendations due to atrial flutter. <Ct Braswell - 07/18/18 15:33> - Assessment and Plan Fluid: NS @ 70 mls/hour Electrolytes: monitor Nutrition: NPO for now until patient has passed bedside swallow <FrenchCt A - 07/18/18 15:11> - Attending Attestation The exam, history, and the medical decision-making described in the above note were completed with the assistance of the resident physician. I reviewed and agree with the findings presented. I attest that I had a [id number] encounter with the patient on the same day, and personally performed and documented my assessment and findings in the medical record. 73 yo M presented after family noticed that he was confused and unable to answer questions appropriately. he has known hx of aflutter and hypertension. and has not been compliant with medications per daughter. presented out of tpa window but found to have left MCA stroke likely on MRI. neurology consulted and cardiology consulted. explained to daughters in room today finding of new stroke will permit hypertension and hold anti hypertensives except rate control with beta mary. will get him therapies, try to optimize medical management in coordination with neurology and cardiology and hope to send him out on a NOAC if possible. <Kev Barajas - 07/18/18 19:37>
[2018-07-18] MEDS ORDERED: Acetaminophen 325 MG Tablet PO PRN (14:43)
--- NOTE | 2018-07-18 15:08 | P.CONNEU ---
History of Present Illness Service: Neurology Primary Care Provider: UNKNOWN Chief Complaint: cva History of Present Illness: 73-year-old male admitted for stroke. Onset greater than 6 hours not IV TPA candidate. Acute stroke protocol was nonetheless followed possible intervention. CTAs brain carotid not show any significant vaso-occlusive disease. Patient spouse states patient has had difficulty understanding but is able to speak. States his last normal yesterday. Is noted to be in a flutter in the ER. Had a stroke 4 years ago treated in [place] was given IV TPA. States he recovered well from it. He still smokes half a pack a day. May not have taken his Plavix for a few days either. Review of Systems All other systems reviewed negative except as stated in HPI PMFSH - History History Provided By: Family Member (stroke, hypertension) - Medical History Medical History: Medical History (Last Updated 07/18/18 @ 12:17 by Maral Heath) CVA (cerebral vascular accident) HTN (hypertension) Heart attack - Surgical History Surgical History: Surgical History (Last Updated 07/18/18 @ 12:17 by Maral Heath) Hx of heart artery stent - Tobacco History Second Hand Smoke Exposure: Yes Tobacco Use In Past 30 Days: Yes Smoking Status: Current every day smoker Tobacco Type: Cigarettes - Alcohol History How Often Do You Have a Drink Containing Alcohol: Never - Substance Use History Substance History: No History of Abuse - Travel History History of Recent Travel: No Recent Travel Out of the Country Within the Last 8 Weeks: No - Immunization History Tetanus Immunization: Unsure Medications and Allergies Active Medications: Active Medications Acetaminophen (Tylenol) 650 mg PO Q4H PRN PRN Reason: Temp > 100.4 Sodium Chloride (Ns Inj) 1,000 mls @ 70 mls/hr IV.CONT .[id number] [facility] Last Admin: 07/18/18 11:59 Dose: 70 mls/hr Ondansetron HCl (Zofran Inj) 4 mg IV.PUSH Q6H PRN PRN Reason: NAUSEA OR VOMITING Senna/Docusate Sodium (Devi-Colace) 1 tab PO BID [facility] Allergies Allergy/AdvReac Type Severity Reaction Status Date / Time meperidine AdvReac Intermediate Nausea/Vomi Verified 07/18/18 16:02 ting Home Medications Medication Instructions Recorded Confirmed Type aspirin 81 mg PO DAILY 07/18/18 07/18/18 History lisinopril 10 mg PO DAILY 07/18/18 07/18/18 History metoprolol succinate 50 mg PO DAILY 07/18/18 07/18/18 History nitroglycerin 0.4 mg SUBLINGUAL Q5-15M PRN 07/18/18 07/18/18 History Exam Vital signs: Vital Signs 07/18/18 11:33 07/18/18 12:15 07/18/18 13:52 Temperature 97.8 F Pulse Rate 73 72 72 Respiratory Rate 19 17 12 Blood Pressure 152/93 H 164/99 H 150/91 H Pulse Oximetry 94 L 95 95 Intake & Output 07/17/18 07/18/18 07/18/18 18:59 06:59 18:59 Weight 84.1 kg Narrative: GENERAL: in NAD, SKIN: Warm and dry. HEAD: Atraumatic. Normocephalic. EYES: Pupils equal and round. No scleral icterus. ENT: No nasal bleeding or discharge. Mucous membranes pink and moist. NECK: Trachea midline. No JVD. CARDIOVASCULAR: Irregular RESPIRATORY: No accessory muscle use. GASTROINTESTINAL: Abdomen soft, non-tender, nondistended. MUSCULOSKELETAL: Extremities without clubbing, cyanosis, or edema. No obvious deformities. NEUROLOGICAL: Awake and alert. Comprehensive aphasia, fluent articulate, No facial asymmetry, OU 3-2mm, eomi, VFF, No drift, sensory examination limited gait not assessed secondary to fall risk PSYCHIATRIC: Calm - Constitutional no acute distress - Routine HEENT Exam Head: Present: normocephalic Eye: Present: EOMI Results - Labs CBC & Chem 7: 07/18/18 11:45 07/18/18 11:45 Labs: Laboratory Results - last 24 hr 07/18/18 07/18/18 07/18/18 11:45 11:45 11:45 WBC 8.7 RBC 4.81 Hgb 15.0 POC Hgb (Calc) 14.6 Hct 45.1 POC Hct 43.0 MCV 93.8 MCH 31.2 MCHC 33.2 RDW 14.4 Plt Count 278 MPV 8.1 Neut % (Auto) 76.2 H Lymph % (Auto) 14.3 [place] % (Auto) 7.2 Eos % (Auto) 1.7 Baso % (Auto) 0.6 Neut # (Auto) 6.6 Lymph # (Auto) 1.3 [place] # (Auto) 0.6 Eos # (Auto) 0.1 Baso # (Auto) 0.1 WBC Differential . Differential Comment Auto diff final PT 10.8 INR 1.1 APTT 30.6 Fibrinogen 370 POC Sodium 143 Sodium 142 POC Potassium 4.5 Potassium 4.5 POC Chloride 103 Chloride 110 H Carbon Dioxide 26.8 Anion Gap 5 POC BUN 13 BUN 14 Creatinine 0.94 POC Creatinine 1.0 Estimated GFR 79 L POC Glucose 86 Random Glucose 87 Calcium 8.1 L [place] Total Creatine Kinase 82 Troponin I Less than 0.02 L Urine Color Urine Clarity Urine pH Ur Specific [place] Urine Protein Urine Glucose (UA) Urine Ketones Urine Occult Blood Urine Nitrate Urine Bilirubin Urine Urobilinogen Ur Leukocyte Esterase Urine RBC Urine WBC Urine Bacteria Micro UA Comment Ur Microscopic Review Urine Culture Comments Urine Opiates Screen Ur Barbiturates Screen Ur Amphetamines Screen U Benzodiazepines Scrn Urine Cocaine Screen U Cannabinoids Screen Blood Type Blood Type Recheck Antibody Screen 07/18/18 07/18/18 07/18/18 11:45 12:36 Unknown WBC RBC Hgb POC Hgb (Calc) Hct POC Hct MCV MCH MCHC RDW Plt Count MPV Neut % (Auto) Lymph % (Auto) [place] % (Auto) Eos % (Auto) Baso % (Auto) Neut # (Auto) Lymph # (Auto) [place] # (Auto) Eos # (Auto) Baso # (Auto) WBC Differential Differential Comment PT INR APTT Fibrinogen POC Sodium Sodium POC Potassium Potassium POC Chloride Chloride Carbon Dioxide Anion Gap POC BUN BUN Creatinine POC Creatinine Estimated GFR POC Glucose Random Glucose Calcium Ammonia 14 Total Creatine Kinase Troponin I Urine Color Urine Clarity Urine pH Ur Specific [place] Urine Protein Urine Glucose (UA) Urine Ketones Urine Occult Blood Urine Nitrate Urine Bilirubin Urine Urobilinogen Ur Leukocyte Esterase Urine RBC Urine WBC Urine Bacteria Micro UA Comment Ur Microscopic Review Urine Culture Comments Urine Opiates Screen Neg Ur Barbiturates Screen Neg Ur Amphetamines Screen Neg U Benzodiazepines Scrn Neg Urine Cocaine Screen Neg U Cannabinoids Screen Neg Blood Type O Negative Blood Type Recheck Required Antibody Screen Negative 07/18/18 Unknown WBC RBC Hgb POC Hgb (Calc) Hct POC Hct MCV MCH MCHC RDW Plt Count MPV Neut % (Auto) Lymph % (Auto) [place] % (Auto) Eos % (Auto) Baso % (Auto) Neut # (Auto) Lymph # (Auto) [place] # (Auto) Eos # (Auto) Baso # (Auto) WBC Differential Differential Comment PT INR APTT Fibrinogen POC Sodium Sodium POC Potassium Potassium POC Chloride Chloride Carbon Dioxide Anion Gap POC BUN BUN Creatinine POC Creatinine Estimated GFR POC Glucose Random Glucose Calcium Ammonia Total Creatine Kinase Troponin I Urine Color Yellow Urine Clarity Clear Urine pH 7.0 Ur Specific [place] 1.054 H Urine Protein Negative Urine Glucose (UA) Negative Urine Ketones Negative Urine Occult Blood Negative Urine Nitrate Negative Urine Bilirubin Negative Urine Urobilinogen 4 or greater Ur Leukocyte Esterase Small H Urine RBC 8 H Urine WBC 8 H Urine Bacteria Rare H Micro UA Comment Cath-culture ind Ur Microscopic Review Not Reportable Urine Culture Comments Cath-cult indicated Urine Opiates Screen Ur Barbiturates Screen Ur Amphetamines Screen U Benzodiazepines Scrn Urine Cocaine Screen U Cannabinoids Screen Blood Type Blood Type Recheck Antibody Screen - Imaging Impressions Chest X-Ray 07/18/18 11:41 CONCLUSION: Chronic interstitial changes within the parenchyma and cardiomegaly. No acute abnormality. Head CT 07/18/18 11:41 CONCLUSION: 1. Microvascular ischemic demyelinative change. No acute abnormality identified by noncontrast CT imaging. Report was called by [Dr. Lobo Gauthier to Dr. Mccarthy at 12:12 PM] Head CTA 07/18/18 11:41 CONCLUSION: 1. No evidence of carotid/vertebral stenosis or occlusion 2. Nonspecific mediastinal lymphadenopathy. 3. Emphysematous changes within the visualized lung apices. Report was called by Dr. Dickerson] to Dr. Copeland at 12:30 PM on 07/18/2018. Neck CTA 07/18/18 11:41 CONCLUSION: No carotid stenosis CT CAD 07/18/18 11:42 CONCLUSION: Physiological brain perfusion parameters with RAPID analysis as above. Study demonstrates a small area of elevated mean cortical transit time in the right posterior parietal cortex. This would indicate a small area of extremely cortex correspond to this region. The decision for consideration of therapy is multi factorial and multi disciplinary relying on subjective and objective clinical data. This data is not construed or intended to be the sole determinant of treatment eligibility. Review/Management - Diagnosis (1) Acute ischemic left MCA stroke Code(s): I63.512 - Cerebral infarction due to unspecified occlusion or stenosis of left middle cerebral artery Status: Acute Current Visit: Yes (2) Tobacco use Code(s): Z72.0 - Tobacco use Status: Acute Current Visit: Yes (3) Atrial flutter Code(s): I48.92 - Unspecified atrial flutter Status: Acute Current Visit: Yes (4) Hypertension Code(s): I10 - Essential (primary) hypertension Status: Acute Current Visit : Yes (5) Hyperlipidemia Code(s): E78.5 - Hyperlipidemia, unspecified Status: Acute Current Visit: Yes - Review/Management Plan: Comprehensive aphasia suggestive of a left posterior MCA temporal lobe stroke Risk factors include persistent tobacco use resulting in artery to artery emboli versus cardioembolic from a flutter Recommendation MRI brain Echo, check lipids, HbA1c SCDs Consider cardiology evaluation of A. fib evaluation and treatment to determine optimal oral anticoagulant; differentiate valvular versus nonvalvular A flutter ; defer to medical team Tobacco cessation Aspirin and heparin subcu for now until MRI brain scan and cardiology evaluation completed Therapy Discussed with patient and spouse No driving Behavioral modification and risk factor reduction. Weight loss, blood pressure control, blood sugar control, lipid control. Exercise
--- NOTE | 2018-07-18 16:25 | MR ---
EXAM DATE: 07/18/2018 4:17 PM EST AGE/SEX: 73 years / Male INDICATIONS: CVA. Confusion since earlier this morning. CLINICAL DATA: This is the patient's initial encounter. Patient reports that signs and symptoms have been present for 1 day and indicates a pain score of 4/10. MEDICAL/SURGICAL HISTORY: Myocardial infarction. Prior TIA about 4 years ago. Coronary artery stent. Hernia sx. [place] [facility] [place] W 3D, 07/18/2018. . TECHNIQUE: Multiplanar, multisequence examination of the brain was performed without contrast. FINDINGS: Cerebrum: Focal cortical signal abnormality is noted involving the left mid parietal lobe on the dif fusion-weighted images indicating acute infarct in the left middle cerebral artery distribution. More subtle signal abnormality is noted involving the left posterior temporal cortex also within the left middle cerebral artery distribution. Scattered old tiny lacunar infarcts are noted within the bilat eral basal ganglia. White Matter: Severe periventricular and subcortical white matter small vessel ischemic changes are noted bilaterally. Posterior Fossa: The cerebellum and brainstem are intact. The 4th ventricle is midline. The cerebel lopontine angle is unremarkable. The cerebellar tonsils are normal in position. Diffusion Imaging: No focal areas of restricted diffusion are seen. No evidence of acute infarction . Extracranial: The visualized portions of the orbits and paranasal sinuses are unremarkable. CONCLUSION: 1. Focal cortical signal abnormality is noted involving the left mid parietal lobe on the diffusion- weighted images indicating acute infarct in the left middle cerebral artery distribution. More subtle signal abnormality is noted involving the left posterior temporal cortex also within the left middle cerebral artery distribution. 2. Severe periventricular and subcortical white matter small vessel ischemic changes bilaterally. 3. No acute hemorrhage, midline shift or extra-axial bleed. 4. Scattered old tiny lacunar infarcts within the bilateral basal ganglia. Electronically signed by: Artem Dickerson MD 07/18/2018 4:24 PM EST
[2018-07-18 18:21] LABS: Thyroid Stimulating Hormone 0.952 uIU/mL (0.358-3.740)
--- NOTE | 2018-07-18 18:37 | MB ---
cc: Néstor Mcginnis MD DATE: 07/18/2018 REASON FOR CONSULTATION: Atrial fibrillation/flutter. HISTORY OF PRESENT ILLNESS: The patient is a 73-year-old white male, from whom history is currently very difficult to elicit, as he is answering most questions inappropriately, with a history of coronary artery disease, hyperlipidemia, CVA, hypertension, possibly paroxysmal atrial fibrillation, who was admitted to the hospital with mental status changes. The patient's answers most of the questions and states he began answering questions this morning in a very inappropriate manner or was basically unable to answer questions at times. He has had no definite recent chest pains, shortness of breath, dizziness, syncope, near syncope, palpitations, pedal edema, paroxysmal nocturnal dyspnea. Further workup with an MRI suggests an acute left middle cerebral artery territory CVA. PAST MEDICAL HISTORY: 1. Coronary artery disease, status post possibly 3 myocardial infarctions, the last one in 2013. He reports having had placement of 2 or 3 coronary stents in the past. 2. Hyperlipidemia. 3. Cerebrovascular accident in 2013. 4. Hypertension. 5. Possible history of paroxysmal atrial fibrillation, diagnosed at the time of his stroke in 2013. PAST SURGICAL HISTORY: 1. Hernia repair. 2. Back surgery. CARDIAC MEDICATIONS AT HOME: 1. Lisinopril 10 mg daily. 2. Metoprolol succinate 50 mg daily. 3. Aspirin 81 mg daily. ALLERGIES: DEMEROL. FAMILY HISTORY: Noncontributory. SOCIAL HISTORY: The patient smokes about a pack of cigarettes or more per day. There is no history of drug or alcohol abuse. REVIEW OF SYSTEMS: As in history of present illness, otherwise negative or noncontributory. He seems also to deny headache, abdominal pain, dyspepsia, bright red blood per rectum. PHYSICAL EXAMINATION: VITAL SIGNS: Blood pressure 160/88 with a pulse of 69, respirations 18. GENERAL: He is a well-developed, well-nourished white male, in no acute distress. NECK: Jugular venous pressure is normal. Carotid pulses are 2+ bilaterally and without bruits. CHEST: Reveals clear lungs gastelum. CARDIAC: He has a regular rhythm and rate without S3, S4, or murmur. ABDOMEN: He has a soft, nontender abdomen. Bowel sounds are present. There is no definite hepatosplenomegaly. EXTREMITIES: Reveals no clubbing, cyanosis or edema. LABORATORY DATA: Includes normal CBC, normal basic metabolic profile and negative cardiac enzymes. Chest x-ray shows no acute disease. EKG shows atrial fibrillation/flutter, otherwise normal EKG. IMPRESSION: Paroxysmal atrial fibrillation/flutter, acute cerebrovascular accident in a 73-year-old white male with a history of coronary artery disease, cerebrovascular accident in 2013, hyperlipidemia, hypertension. At this time, he remains in an atrial fibrillation/flutter with controlled heart rates. The patient's believes he has had a diagnosis of atrial fibrillation in the past, around the time of his cerebrovascular accident in 2013. Needless to say, his thromboembolic risk is high. There is no evidence for acute coronary syndrome. His cardiac status appears to be overall stable otherwise. RECOMMENDATIONS: 1. Continue his metoprolol. Agree with holding lisinopril for now given his acute CVA and need for higher blood pressures. 2. Change the aspirin to 81 mg daily and start anticoagulation therapy with Eliquis if okay from a neurological standpoint. 3. Check a 2-D echo to assess his left ventricular function. Néstor Mcginnis MD GHR/ct , 05:06 PM , 05:16 PM MTDD
--- NOTE | 2018-07-18 18:38 | MR ---
EXAM DATE: 07/18/2018 6:02 PM EST AGE/SEX: 73 years / Male INDICATIONS: CVA. CLINICAL DATA: This is the patient's initial encounter. Patient reports that signs and symptoms have been present for 1 day and indicates a pain score of 5/10. MEDICAL/SURGICAL HISTORY: Myocardial infarction. Coronary artery stent. Hernia sx. [place] [facility] [place]. . TECHNIQUE: 3D [id number] MRA was performed. Source images, multiplanar STS MIP, and 3D volum e MIP reconstructions were reviewed. FINDINGS: There is excellent visualization of the major intracranial arteries out to the second-order branch ve ssels. There is no evidence for aneurysm, vessel truncation or stenosis, and no evidence for vascula r malformation. No definite flow in the anterior communicating artery or the right posterior communic ating artery. There is a large left posterior communicating. CONCLUSION: 1. Negative MRA of the [place]. Electronically signed by: Damien Alcaraz MD 07/18/2018 6:37 PM EST
[2018-07-18 18:55] LABS: Hemoglobin A1c 5.1 % (4.3-6.0)
[2018-07-18] MEDS ORDERED: Heparin - SQ 10,000 UNITS/ML Vial SQ SCH (21:00)
[2018-07-18] MEDS: Senna/Docusate Sodium 8.6/50 MG Tablet PO SCH (22:39)
[2018-07-19] MEDS: Sod Chloride 0.9% Inj 1,000 ML IV.CONT SCH ×2 (02:21→05:33)
[2018-07-19 07:18] LABS: Baso % (Auto) 0.3 % (0.0-2.0); Eos # (Auto) 0.1 th/mm3 (0.0-0.4); Eos % (Auto) 1.1 % (0.0-4.0); Hematocrit 43.7 % (39.0-51.0); Hemoglobin 14.7 gm/dL (13.0-17.0); Lymph % (Auto) 9.1 % (9.0-44.0); Mean Corpuscular HGB Conc 33.6 % (32.0-36.0); Mean Corpuscular Hemoglobin 31.3 pg (27.0-34.0); Mean Corpuscular Volume 93.3 fL (80.0-100.0); Mean Platelet Volume 8.3 fL (7.0-11.0); Mono # (Auto) 0.9 th/mm3 (0.0-0.9); Mono % (Auto) 7.5 % (0.0-8.0); Neut # (Auto) 9.2 th/mm3 (1.8-7.7); Platelet Count 253 th/mm3 (150-450); Red Blood Count 4.68 mil/mm3 (4.50-5.90); Red Cell Distribution Width 14.2 % (11.6-17.2); White Blood Count 11.3 th/mm3 (4.0-11.0)
[2018-07-19 07:37] LABS: Glomerular Filtration Rate Greater Than 89 mL/min (>89)
[2018-07-19 07:41] LABS: Alanine Aminotransferase 15 U/L (12-78); Alkaline Phosphatase 94 U/L (45-117); Chol/HDL Ratio 5.08 Ratio; Cholesterol 172 mg/dL (120-200); HDL Cholesterol 33.8 mg/dL (40.0-60.0); LDL Cholesterol,Calculated 124 mg/dL (0-99); Total Protein 6.6 g/dL (6.4-8.2); Triglycerides 70 mg/dL (42-150)
[2018-07-19 08:04] LABS: Albumin 3.1 g/dL (3.4-5.0); Anion Gap 9 meq/L (5-15); Aspartate Aminotransferase 19 U/L (15-37); Blood Urea Nitrogen 14 mg/dL (7-18); Calcium 7.8 mg/dL (8.5-10.1); Chloride 110 meq/L (98-107); Glucose,Random 71 mg/dL (74-106); Potassium 4.2 meq/L (3.5-5.1); Sodium 141 meq/L (136-145)
--- NOTE | 2018-07-19 08:05 | P.PNNEU ---
Subjective Subjective Comments: no acute events, no alex, no cp/dyspnea Active Medications: Active Medications Acetaminophen (Tylenol) 650 mg PO Q4H PRN PRN Reason: Temp > 100.4 Apixaban (Eliquis) 5 mg PO BID [facility] Aspirin (Ecotrin) 81 mg PO DAILY [facility] Sodium Chloride (Ns Inj) 1,000 mls @ 70 mls/hr IV.CONT .[id number] [facility] Last Admin: 07/19/18 05:33 Dose: 70 mls/hr Metoprolol Succinate (Toprol Xl) 50 mg PO DAILY [facility] Last Admin: 07/18/18 16:46 Dose: 50 mg Ondansetron HCl (Zofran Inj) 4 mg IV.PUSH Q6H PRN PRN Reason: NAUSEA OR VOMITING Senna/Docusate Sodium (Devi-Colace) 1 tab PO BID [facility] Last Admin: 07/18/18 22:39 Dose: 1 tab Allergies/Adverse Reactions: Allergies Allergy/AdvReac Type Severity Reaction Status Date / Time meperidine AdvReac Intermediate Nausea/Vomi Verified 07/18/18 16:02 ting Review of Systems All other systems reviewed negative except as stated in HPI Physical Exam Vital signs: Vital Signs 07/18/18 11:33 07/18/18 12:15 07/18/18 13:52 Temperature 97.8 F Pulse Rate 73 72 72 Respiratory Rate 19 17 12 Blood Pressure 152/93 H 164/99 H 150/91 H Pulse Oximetry 94 L 95 95 07/18/18 16:48 07/18/18 20:14 07/18/18 20:30 Temperature 97.9 F 97.5 F L Pulse Rate 69 74 74 Respiratory Rate 18 18 Blood Pressure 160/88 H 143/93 H Pulse Oximetry 99 07/19/18 00:00 07/19/18 04:00 07/19/18 04:47 Temperature 97.8 F 97.7 F Pulse Rate 78 71 74 Respiratory Rate 18 18 Blood Pressure 156/95 H 157/76 H Pulse Oximetry 92 L 86 L Intake & Output 07/18/18 07/19/18 07/19/18 18:59 06:59 18:59 Intake Total 100 / 100 Balance 100 / 100 Weight 84.1 kg 84.1 kg Intake: IV 100 / 100 Rocephin Inj 1,000 MG In NS Inj 100 / 100 100 ML @ 200 mls/hr IV.SIG ONCE ONE Rx#:[id number] Other: Weight On Admission 84.2 kg Narrative: GENERAL: in NAD, SKIN: Warm and dry. HEAD: Atraumatic. Normocephalic. EYES: Pupils equal and round. No scleral icterus. ENT: No nasal bleeding or discharge. Mucous membranes pink and moist. NECK: Trachea midline. No JVD. CARDIOVASCULAR: Irregular RESPIRATORY: No accessory muscle use. GASTROINTESTINAL: Abdomen soft, non-tender, nondistended. MUSCULOSKELETAL: Extremities without clubbing, cyanosis, or edema. No obvious deformities. NEUROLOGICAL: Awake and alert. Comprehensive aphasia-better this am, able to follow some motor request and attempts to understand, fluent articulate, No facial asymmetry, OU 3-2mm, eomi, VFF, No drift, sensory examination limited gait not assessed secondary to fall risk PSYCHIATRIC: Calm - Constitutional no acute distress - Routine HEENT Exam Head: Present: normocephalic Objective Laboratory Results - last 24 hr 07/18/18 07/18/18 07/18/18 11:45 11:45 11:45 WBC 8.7 RBC 4.81 Hgb 15.0 POC Hgb (Calc) 14.6 Hct 45.1 POC Hct 43.0 MCV 93.8 MCH 31.2 MCHC 33.2 RDW 14.4 Plt Count 278 MPV 8.1 Neut % (Auto) 76.2 H Lymph % (Auto) 14.3 [place] % (Auto) 7.2 Eos % (Auto) 1.7 Baso % (Auto) 0.6 Neut # (Auto) 6.6 Lymph # (Auto) 1.3 [place] # (Auto) 0.6 Eos # (Auto) 0.1 Baso # (Auto) 0.1 WBC Differential . Differential Comment Auto diff final ESR PT 10.8 INR 1.1 APTT 30.6 Fibrinogen 370 POC Sodium 143 Sodium 142 POC Potassium 4.5 Potassium 4.5 POC Chloride 103 Chloride 110 H Carbon Dioxide 26.8 Anion Gap 5 POC BUN 13 BUN 14 Creatinine 0.94 POC Creatinine 1.0 Estimated GFR 79 L POC Glucose 86 Random Glucose 87 Hemoglobin A1c Calcium 8.1 L Total Bilirubin ALT Alkaline Phosphatase Ammonia Total Creatine Kinase 82 Troponin I Less than 0.02 L Total Protein Triglycerides Cholesterol LDL Cholesterol, Calc HDL Cholesterol Cholesterol/HDL Ratio Vitamin B12 TSH Urine Color Urine Clarity Urine pH Ur Specific [place] Urine Protein Urine Glucose (UA) Urine Ketones Urine Occult Blood Urine Nitrate Urine Bilirubin Urine Urobilinogen Ur Leukocyte Esterase Urine RBC Urine WBC Urine Bacteria Micro UA Comment Ur Microscopic Review Urine Culture Comments Urine Opiates Screen Ur Barbiturates Screen Ur Amphetamines Screen U Benzodiazepines Scrn Urine Cocaine Screen U Cannabinoids Screen Blood Type Blood Type Recheck Antibody Screen 07/18/18 07/18/18 07/18/18 11:45 11:45 11:45 WBC RBC Hgb POC Hgb (Calc) Hct POC Hct MCV MCH MCHC RDW Plt Count MPV Neut % (Auto) Lymph % (Auto) [place] % (Auto) Eos % (Auto) Baso % (Auto) Neut # (Auto) Lymph # (Auto) [place] # (Auto) Eos # (Auto) Baso # (Auto) WBC Differential Differential Comment ESR 4 PT INR APTT Fibrinogen POC Sodium Sodium POC Potassium Potassium POC Chloride Chloride Carbon Dioxide Anion Gap POC BUN BUN Creatinine POC Creatinine Estimated GFR POC Glucose Random Glucose Hemoglobin A1c 5.1 Calcium Total Bilirubin ALT Alkaline Phosphatase Ammonia Total Creatine Kinase Troponin I Total Protein Triglycerides Cholesterol LDL Cholesterol, Calc HDL Cholesterol Cholesterol/HDL Ratio Vitamin B12 TSH Urine Color Urine Clarity Urine pH Ur Specific [place] Urine Protein Urine Glucose (UA) Urine Ketones Urine Occult Blood Urine Nitrate Urine Bilirubin Urine Urobilinogen Ur Leukocyte Esterase Urine RBC Urine WBC Urine Bacteria Micro UA Comment Ur Microscopic Review Urine Culture Comments Urine Opiates Screen Ur Barbiturates Screen Ur Amphetamines Screen U Benzodiazepines Scrn Urine Cocaine Screen U Cannabinoids Screen Blood Type O Negative Blood Type Recheck Required Antibody Screen Negative 07/18/18 07/18/18 07/18/18 11:45 12:36 Unknown WBC RBC Hgb POC Hgb (Calc) Hct POC Hct MCV MCH MCHC RDW Plt Count MPV Neut % (Auto) Lymph % (Auto) [place] % (Auto) Eos % (Auto) Baso % (Auto) Neut # (Auto) Lymph # (Auto) [place] # (Auto) Eos # (Auto) Baso # (Auto) WBC Differential Differential Comment ESR PT INR APTT Fibrinogen POC Sodium Sodium POC Potassium Potassium POC Chloride Chloride Carbon Dioxide Anion Gap POC BUN BUN Creatinine POC Creatinine Estimated GFR POC Glucose Random Glucose Hemoglobin A1c Calcium Total Bilirubin ALT Alkaline Phosphatase Ammonia 14 Total Creatine Kinase Troponin I Total Protein Triglycerides Cholesterol LDL Cholesterol, Calc HDL Cholesterol Cholesterol/HDL Ratio Vitamin B12 304 TSH 0.952 Urine Color Urine Clarity Urine pH Ur Specific [place] Urine Protein Urine Glucose (UA) Urine Ketones Urine Occult Blood Urine Nitrate Urine Bilirubin Urine Urobilinogen Ur Leukocyte Esterase Urine RBC Urine WBC Urine Bacteria Micro UA Comment Ur Microscopic Review Urine Culture Comments Urine Opiates Screen Neg Ur Barbiturates Screen Neg Ur Amphetamines Screen Neg U Benzodiazepines Scrn Neg Urine Cocaine Screen Neg U Cannabinoids Screen Neg Blood Type Blood Type Recheck Antibody Screen 07/18/18 07/19/18 07/19/18 Unknown 06:45 06:45 WBC 11.3 H RBC 4.68 Hgb 14.7 POC Hgb (Calc) Hct 43.7 POC Hct MCV 93.3 MCH 31.3 MCHC 33.6 RDW 14.2 Plt Count 253 MPV 8.3 Neut % (Auto) 82.0 H Lymph % (Auto) 9.1 [place] % (Auto) 7.5 Eos % (Auto) 1.1 Baso % (Auto) 0.3 Neut # (Auto) 9.2 H Lymph # (Auto) 1.0 [place] # (Auto) 0.9 Eos # (Auto) 0.1 Baso # (Auto) 0.0 WBC Differential . Differential Comment Auto diff final ESR PT INR APTT Fibrinogen POC Sodium Sodium POC Potassium Potassium POC Chloride Chloride Carbon Dioxide Anion Gap POC BUN BUN Creatinine 0.78 POC Creatinine Estimated GFR Greater than 89 POC Glucose Random Glucose Hemoglobin A1c Calcium Total Bilirubin 0.8 ALT 15 Alkaline Phosphatase 94 Ammonia Total Creatine Kinase Troponin I Total Protein 6.6 Triglycerides 70 Cholesterol 172 LDL Cholesterol, Calc 124 H HDL Cholesterol 33.8 L Cholesterol/HDL Ratio 5.08 Vitamin B12 TSH Urine Color Yellow Urine Clarity Clear Urine pH 7.0 Ur Specific [place] 1.054 H Urine Protein Negative Urine Glucose (UA) Negative Urine Ketones Negative Urine Occult Blood Negative Urine Nitrate Negative Urine Bilirubin Negative Urine Urobilinogen 4 or greater Ur Leukocyte Esterase Small H Urine RBC 8 H Urine WBC 8 H Urine Bacteria Rare H Micro UA Comment Cath-culture ind Ur Microscopic Review Not Reportable Urine Culture Comments Cath-cult indicated Urine Opiates Screen Ur Barbiturates Screen Ur Amphetamines Screen U Benzodiazepines Scrn Urine Cocaine Screen U Cannabinoids Screen Blood Type Blood Type Recheck Antibody Screen Review/Management - Diagnosis (1) Acute ischemic left MCA stroke Code(s): I63.512 - Cerebral infarction due to unspecified occlusion or stenosis of left middle cerebral artery Status: Acute Current Visit: Yes (2) Tobacco use Code(s): Z72.0 - Tobacco use Status: Acute Current Visit: Yes (3) Atrial flutter Code(s): I48.92 - Unspecified atrial flutter Status: Acute Current Visit: Yes (4) Hypertension Code(s): I10 - Essential (primary) hypertension Status: Acute Current Visit : Yes (5) Hyperlipidemia Code(s): E78.5 - Hyperlipidemia, unspecified Status: Acute Current Visit: Yes - Review/Management Plan: Comprehensive aphasia suggestive of a left posterior MCA temporal lobe stroke Risk factors include persistent tobacco use resulting in artery to artery emboli versus cardioembolic from a flutter left mca stroke, high parietal/temporal, mild to moderate size cta brain/carotids nml seen by cardio Recommendation eliquis 1/2 dose x 1week with aspirin. then full dose and stop aspirin Therapy d/c planning outpatient f/u Discussed with patient No driving tobacco cessation Behavioral modification and risk factor reduction. Weight loss, blood pressure control, blood sugar control, lipid control. Exercise
[2018-07-19] MEDS: Senna/Docusate Sodium 8.6/50 MG Tablet PO SCH ×2 (08:28→20:51)
--- NOTE | 2018-07-19 08:28 | P.PNCA ---
Subjective Interval history: Answering questions more appropriately. Denies CP, SOB, palpitations, dizziness. Slept well. Medications and Allergies Active Medications: Active Medications Acetaminophen (Tylenol) 650 mg PO Q4H PRN PRN Reason: Temp > 100.4 Apixaban (Eliquis) 5 mg PO BID [facility] Aspirin (Ecotrin) 81 mg PO DAILY [facility] Sodium Chloride (Ns Inj) 1,000 mls @ 70 mls/hr IV.CONT .[id number] [facility] Last Admin: 07/19/18 05:33 Dose: 70 mls/hr Metoprolol Succinate (Toprol Xl) 50 mg PO DAILY [facility] Last Admin: 07/18/18 16:46 Dose: 50 mg Ondansetron HCl (Zofran Inj) 4 mg IV.PUSH Q6H PRN PRN Reason: NAUSEA OR VOMITING Senna/Docusate Sodium (Devi-Colace) 1 tab PO BID [facility] Last Admin: 07/18/18 22:39 Dose: 1 tab Allergies Allergy/AdvReac Type Severity Reaction Status Date / Time meperidine AdvReac Intermediate Nausea/Vomi Verified 07/18/18 16:02 ting Home Medications Medication Instructions Recorded Confirmed Type aspirin 81 mg PO DAILY 07/18/18 07/18/18 History lisinopril 10 mg PO DAILY 07/18/18 07/18/18 History metoprolol succinate 50 mg PO DAILY 07/18/18 07/18/18 History nitroglycerin 0.4 mg SUBLINGUAL Q5-15M PRN 07/18/18 07/18/18 History Physical Exam Vital signs: Vital Signs 07/18/18 11:33 07/18/18 12:15 07/18/18 13:52 Temperature 97.8 F Pulse Rate 73 72 72 Respiratory Rate 19 17 12 Blood Pressure 152/93 H 164/99 H 150/91 H Pulse Oximetry 94 L 95 95 07/18/18 16:48 07/18/18 20:14 07/18/18 20:30 Temperature 97.9 F 97.5 F L Pulse Rate 69 74 74 Respiratory Rate 18 18 Blood Pressure 160/88 H 143/93 H Pulse Oximetry 99 07/19/18 00:00 07/19/18 04:00 07/19/18 04:47 Temperature 97.8 F 97.7 F Pulse Rate 78 71 74 Respiratory Rate 18 Blood Pressure 156/95 H 157/76 H Pulse Oximetry 92 L 86 L Intake & Output 07/18/18 07/19/18 07/19/18 18:59 06:59 18:59 Intake Total 100 / 100 Balance 100 / 100 Weight 84.1 kg 84.1 kg Intake: IV 100 / 100 Rocephin Inj 1,000 MG In NS Inj 100 / 100 100 ML @ 200 mls/hr IV.SIG ONCE ONE Rx#:[id number] Other: Weight On Admission 84.2 kg - Constitutional no acute distress - Routine Neck Exam Absent: JVD - Routine Respiratory Exam Present: CTA bilaterally - Routine Cardiovascular Exam Present: RRR, S1, S2. Absent: murmur, gallop - Routine Abdominal Exam Present: soft, normoactive bowel sounds. Absent: tenderness, organomegaly - Routine Extremities Exam Absent: cyanosis, clubbing, edema Results 07/19/18 06:45 07/19/18 06:45 Cardiac Enzymes 07/18/18 07/19/18 Range/Units 11:45 06:45 AST 19 (15-37) U/L Troponin I Less than 0.02 L (0.02-0.05) ng/mL Coagulation 07/18/18 Range/Units 11:45 PT 10.8 (9.8-11.6) sec APTT 30.6 (23.4-31.7) sec Lipids 07/19/18 Range/Units 06:45 Triglycerides 70 (42-150) mg/dL Cholesterol 172 (120-200) mg/dL HDL Cholesterol 33.8 L (40.0-60.0) mg/dL Cholesterol/HDL Ratio 5.08 Ratio CBC 07/18/18 07/19/18 Range/Units 11:45 06:45 WBC 8.7 11.3 H (4.0-11.0) th/mm3 RBC 4.81 4.68 (4.50-5.90) mil/mm3 Hgb 15.0 14.7 (13.0-17.0) gm/dL Hct 45.1 43.7 (39.0-51.0) % Plt Count 278 253 (150-450) th/mm3 Neut # (Auto) 6.6 9.2 H (1.8-7.7) th/mm3 Lymph # (Auto) 1.3 1.0 (1.0-4.8) th/mm3 [place] # (Auto) 0.6 0.9 (0.0-0.9) th/mm3 Eos # (Auto) 0.1 0.1 (0.0-0.4) th/mm3 Baso # (Auto) 0.1 0.0 (0.0-0.2) th/mm3 Comprehensive Metabolic Panel 07/18/18 07/19/18 Range/Units 11:45 06:45 Sodium 142 141 (136-145) meq/L Potassium 4.5 4.2 (3.5-5.1) meq/L Chloride 110 H 110 H (98-107) meq/L Carbon Dioxide 26.8 22.0 (21.0-32.0) meq/L BUN 14 14 (7-18) mg/dL Creatinine 0.94 0.78 (0.60-1.30) mg/dL Calcium 8.1 L 7.8 L (8.5-10.1) mg/dL AST 19 (15-37) U/L ALT 15 (12-78) U/L Alkaline Phosphatase 94 (45-117) U/L Total Protein 6.6 (6.4-8.2) g/dL Albumin 3.1 L (3.4-5.0) g/dL Intake and Output 07/18/18 07/19/18 07/19/18 22:59 06:59 14:59 Intake Total 100 / 100 Balance 100 / 100 Intake: IV 100 / 100 Rocephin Inj 1,000 MG In NS Inj 100 / 100 100 ML @ 200 mls/hr IV.SIG ONCE ONE Rx#:[id number] Other: Weight 84.2 kg 84.1 kg Weight On Admission 84.2 kg - Imaging and Cardiology Imaging: Impressions Head MRI 07/18/18 00:00 CONCLUSION: 1. Focal cortical signal abnormality is noted involving the left mid parietal lobe on the diffusion-weighted images indicating acute infarct in the left middle cerebral artery distribution. More subtle signal abnormality is noted involving the left posterior temporal cortex also within the left middle cerebral artery distribution. 2. Severe periventricular and subcortical white matter small vessel ischemic changes bilaterally. 3. No acute hemorrhage, midline shift or extra-axial bleed. 4. Scattered old tiny lacunar infarcts within the bilateral basal ganglia. Chest X-Ray 07/18/18 11:41 CONCLUSION: Chronic interstitial changes within the parenchyma and cardiomegaly. No acute abnormality. Head CT 07/18/18 11:41 CONCLUSION: 1. Microvascular ischemic demyelinative change. No acute abnormality identified by noncontrast CT imaging. Report was called by [Dr. Lobo Gauthier to Dr. Mccarthy at 12:12 PM] Head CTA 07/18/18 11:41 CONCLUSION: 1. No evidence of carotid/vertebral stenosis or occlusion 2. Nonspecific mediastinal lymphadenopathy. 3. Emphysematous changes within the visualized lung apices. Report was called by Dr. Dickerson] to Dr. Copeland at 12:30 PM on 07/18/2018. Neck CTA 07/18/18 11:41 CONCLUSION: No carotid stenosis CT CAD 07/18/18 11:42 CONCLUSION: Physiological brain perfusion parameters with RAPID analysis as above. Study demonstrates a small area of elevated mean cortical transit time in the right posterior parietal cortex. This would indicate a small area of extremely cortex correspond to this region. The decision for consideration of therapy is multi factorial and multi disciplinary relying on subjective and objective clinical data. This data is not construed or intended to be the sole determinant of treatment eligibility. Head MRA 07/18/18 16:54 CONCLUSION: 1. Negative MRA of the [place]. Assessment and Plan - Assessment (1) Atrial fibrillation and flutter Code(s): I48.91 - Unspecified atrial fibrillation; I48.92 - Unspecified atrial flutter Status: Acute Plan: Remains in atrial fib/flutter. HR's acceptable. Patient asymptomatic. Suspect his acute CVA cardioembolic in etiology. Recommend continue Eliquis, metoprolol. Await echo. (2) Coronary artery disease Code(s): I25.10 - Atherosclerotic heart disease of [place] coronary artery without angina pectoris Status: Chronic Plan: Stable. No evidence for ACS. No recent angina symptoms. Continue beta mary , aspirin. (3) Hypertension Code(s): I10 - Essential (primary) hypertension Status: Chronic Plan: Mildly hypertensive. Continue same in setting of acute CVA. (4) Hyperlipidemia Code(s): E78.5 - Hyperlipidemia, unspecified Status: Chronic Plan: Poor lipid profile. Recommend initiate statin therapy. - Plan Code Status: full code Discussed Condition With: patient (2) Coronary artery disease Qualifiers: Coronary Disease-Associated Artery/Lesion type: [place] artery [place] vs. transplanted heart: [place] heart Associated angina: without angina Qualified Code(s): I25.10 - Atherosclerotic heart disease of [place] coronary artery without angina pectoris (3) Hypertension Qualifiers: Hypertension type: essential hypertension Qualified Code(s): I10 - Essential (primary) hypertension (4) Hyperlipidemia Qualifiers: Hyperlipidemia type: mixed hyperlipidemia Qualified Code(s): E78.2 - Mixed hyperlipidemia
[2018-07-19] MEDS ORDERED: Aspirin 325 MG Tablet PO SCH (09:00)
--- NOTE | 2018-07-19 11:39 | ECG ---
Date Performed: 07/18/2018 Time Performed: 21:39:02 PTAGE: 73 years EKG: ATRIAL FLUTTER/TACHYCARDIA SEPTAL MYOCARDIAL INFARCTION , OF INDETERMINATE AGE MODERATE T-W AVE ABNORMALITY, CONSIDER INFERIOR ISCHEMIA ABNORMAL ECG PREVIOUS TRACING : 07/18/2018 16.40 DOCTOR: Abilio Hurtado Interpretating Date/Time 07/19/2018 11:36:36
--- NOTE | 2018-07-19 12:35 | ECG ---
Date Performed: 07/18/2018 Time Performed: 16:40:44 PTAGE: 73 years EKG: ATRIAL FLUTTER/TACHYCARDIA WITH ABERRANT CONDUCTION OR VENTRICULAR PREMATURE COMPLEXES SEPT AL MYOCARDIAL INFARCTION ABNORMAL ECG PREVIOUS TRACING : 07/18/2018 11.41 DOCTOR: Abilio Hurtado Interpretating Date/Time 07/19/2018 12:33:12
--- NOTE | 2018-07-19 12:47 | ECG ---
Date Performed: 07/18/2018 Time Performed: 11:41:16 PTAGE: 73 years EKG: ATRIAL FLUTTER/TACHYCARDIA ABNORMAL ECG NO PREVIOUS TRACING DOCTOR: Abilio Hurtado Interpretating Date/Time 07/19/2018 12:43:54
[2018-07-19] MEDS ORDERED: Nitroglycerin SL (Override) 0.4 MG Tab SL PRN (14:56)
--- NOTE | 2018-07-19 14:58 | P.PNFP ---
Addendum entered and electronically signed by Zi Juan III, MD, R2 15:13: ECHO result pending Original Note: Subjective Interval history: Mr. Rivera had no acute events overnight. He is confused this morning, and when asked what his name is, he replies "July 09, 1939", repeatedly. It appears he does not have the capacity to assist in helping perform his neurological exam. He is pleasantly confused, but he looks comfortable. His entered the room at the same time we did an explains that he is hard of hearing in his right ear; however, that cannot overcome his confusion. We discussed findings of abnormal MRI head showing CVA with his , and discussed the fact that it is likely he may not regain all of his normal functioning. After the examination, his wanted to go picker feeder her daughter so that she could come back with her daughter. We have asked case management to assess whether patient is safe to go home and be cared for by his versus [facility]/SNF. Patient denies chest pain or short of breath, but is an unreliable historian at this point. <Zi Juan III - 07/19/18 14:58> Results - Labs Result diagrams: 07/19/18 06:45 07/19/18 06:45 <Kev Barajas - 07/19/18 17:25> Abnormal lab results 07/19/18 07/19/18 Range/Units 06:45 06:45 WBC 11.3 H (4.0-11.0) th/mm3 Neut % (Auto) 82.0 H (16.0-70.0) % Neut # (Auto) 9.2 H (1.8-7.7) th/mm3 Chloride 110 H (98-107) meq/L Random Glucose 71 L (74-106) mg/dL Calcium 7.8 L (8.5-10.1) mg/dL Albumin 3.1 L (3.4-5.0) g/dL LDL Cholesterol, Calc 124 H (0-99) mg/dL HDL Cholesterol 33.8 L (40.0-60.0) mg/dL Short CBC 07/19/18 Range/Units 06:45 WBC 11.3 H (4.0-11.0) th/mm3 Hgb 14.7 (13.0-17.0) gm/dL Hct 43.7 (39.0-51.0) % Plt Count 253 (150-450) th/mm3 [facility] 07/19/18 06:45 Sodium 141 Potassium 4.2 Chloride 110 H Carbon Dioxide 22.0 BUN 14 Creatinine 0.78 Calcium 7.8 L Liver Function 07/19/18 Range/Units 06:45 Total Bilirubin 0.8 (0.2-1.0) mg/dL AST 19 (15-37) U/L ALT 15 (12-78) U/L Alkaline Phosphatase 94 (45-117) U/L Albumin 3.1 L (3.4-5.0) g/dL <Kev Barajas - 07/19/18 17:25> Abnormal lab results 07/19/18 07/19/18 Range/Units 06:45 06:45 WBC 11.3 H (4.0-11.0) th/mm3 Neut % (Auto) 82.0 H (16.0-70.0) % Neut # (Auto) 9.2 H (1.8-7.7) th/mm3 Chloride 110 H (98-107) meq/L Random Glucose 71 L (74-106) mg/dL Calcium 7.8 L (8.5-10.1) mg/dL Albumin 3.1 L (3.4-5.0) g/dL LDL Cholesterol, Calc 124 H (0-99) mg/dL HDL Cholesterol 33.8 L (40.0-60.0) mg/dL Short CBC 07/19/18 Range/Units 06:45 WBC 11.3 H (4.0-11.0) th/mm3 Hgb 14.7 (13.0-17.0) gm/dL Hct 43.7 (39.0-51.0) % Plt Count 253 (150-450) th/mm3 [facility] 07/19/18 06:45 Sodium 141 Potassium 4.2 Chloride 110 H Carbon Dioxide 22.0 BUN 14 Creatinine 0.78 Calcium 7.8 L Liver Function 07/19/18 Range/Units 06:45 Total Bilirubin 0.8 (0.2-1.0) mg/dL AST 19 (15-37) U/L ALT 15 (12-78) U/L Alkaline Phosphatase 94 (45-117) U/L Albumin 3.1 L (3.4-5.0) g/dL <Zi Juan III - 07/19/18 14:58> - Imaging Impressions Head MRA 07/18/18 16:54 CONCLUSION: 1. Negative MRA of the [place]. <Kev Barajas - 07/19/18 17:25> Impressions Head MRI 07/18/18 00:00 CONCLUSION: 1. Focal cortical signal abnormality is noted involving the left mid parietal lobe on the diffusion-weighted images indicating acute infarct in the left middle cerebral artery distribution. More subtle signal abnormality is noted involving the left posterior temporal cortex also within the left middle cerebral artery distribution. 2. Severe periventricular and subcortical white matter small vessel ischemic changes bilaterally. 3. No acute hemorrhage, midline shift or extra-axial bleed. 4. Scattered old tiny lacunar infarcts within the bilateral basal ganglia. Head MRA 07/18/18 16:54 CONCLUSION: 1. Negative MRA of the [place]. <Zi Juan III H - 07/19/18 14:58> Physical Exam Vital signs: Vital Signs 07/18/18 20:14 07/18/18 20:23 07/18/18 20:30 Temperature 97.5 F L Pulse Rate 74 74 74 Respiratory Rate 18 Blood Pressure 143/93 H Pulse Oximetry 07/18/18 23:56 07/19/18 00:00 07/19/18 04:00 Temperature 97.8 F 97.7 F Pulse Rate 73 78 71 Respiratory Rate 18 18 Blood Pressure 156/95 H 157/76 H Pulse Oximetry 92 L 86 L 07/19/18 04:47 07/19/18 08:00 07/19/18 12:00 Temperature 97.3 F L 97.4 F L Pulse Rate 74 73 74 Respiratory Rate 18 18 Blood Pressure 146/95 H 153/103 H Pulse Oximetry 91 L 90 L 07/19/18 16:00 Temperature 97.9 F Pulse Rate 74 Respiratory Rate 17 Blood Pressure 154/96 H Pulse Oximetry 95 Intake & Output 07/18/18 07/19/18 07/19/18 18:59 06:59 18:59 Intake Total 100 / 100 1000 / 1000 Balance 100 / 100 1000 / 1000 Weight 84.1 kg 84.1 kg Intake: IV 100 / 100 1000 / 1000 NS Inj 1,000 ML @ 70 mls/hr IV. 1000 / 1000 CONT .[id number] [facility] Rx#:[id number] Rocephin Inj 1,000 MG In NS Inj 100 / 100 100 ML @ 200 mls/hr IV.SIG ONCE ONE Rx#:[id number] Other: Weight On Admission 84.2 kg <Kev Barajas - 07/19/18 17:25> Vital Signs 07/18/18 16:48 07/18/18 20:14 07/18/18 20:23 Temperature 97.9 F 97.5 F L Pulse Rate 69 74 74 Respiratory Rate 18 18 Blood Pressure 160/88 H 143/93 H Pulse Oximetry 99 07/18/18 20:30 07/18/18 23:56 07/19/18 00:00 Temperature 97.8 F Pulse Rate 74 73 78 Respiratory Rate 18 Blood Pressure 156/95 H Pulse Oximetry 92 L 07/19/18 04:00 07/19/18 04:47 07/19/18 08:00 Temperature 97.7 F 97.3 F L Pulse Rate 71 74 73 Respiratory Rate 18 18 Blood Pressure 157/76 H 146/95 H Pulse Oximetry 86 L 91 L 07/19/18 12:00 Temperature 97.4 F L Pulse Rate 74 Respiratory Rate 18 Blood Pressure 153/103 H Pulse Oximetry 90 L Intake & Output 07/18/18 07/19/18 07/19/18 18:59 06:59 18:59 Intake Total 100 / 100 Balance 100 / 100 Weight 84.1 kg 84.1 kg Intake: IV 100 / 100 Rocephin Inj 1,000 MG In NS Inj 100 / 100 100 ML @ 200 mls/hr IV.SIG ONCE ONE Rx#:[id number] Other: Weight On Admission 84.2 kg <Zi Juan III - 07/19/18 14:58> Narrative: GENERAL: in NAD, cheerful, and reading paper while lying in bed. Unable to follow commands and participate in the neurological exam. SKIN: Warm and dry. No rash or lesions. HEAD: Atraumatic. Normocephalic. EYES: Pupils equal and round. No scleral icterus. ENT: No nasal discharge. Mucous membranes pink and moist. NECK: Trachea midline. No JVD. CARDIOVASCULAR: Irregular, no M/G/or R. RESPIRATORY: No accessory muscle use. Clear to auscultation bilaterally. No wheeze, rales or rhonchi. GASTROINTESTINAL: Abdomen soft, non-tender, nondistended. Positive bowel sounds. MUSCULOSKELETAL: Extremities without clubbing, cyanosis, or edema. No obvious deformities. NEUROLOGICAL: Awake and alert. Confused and unable to follow commands or perform tasks for neuro exam but attempts to understand; can speak normally, although responses do not make sense. No facial asymmetry, PERRLA/EOMI, absent pronator drift. PSYCHIATRIC: Calm, cheerful. <Zi Juan III - 07/19/18 14:58> Assessment and Plan - Assessment (1) Altered mental status Code(s): R41.82 - Altered mental status, unspecified Status: Acute (2) Hypertension Code(s): I10 - Essential (primary) hypertension Status: Chronic (3) Hyperlipidemia Code(s): E78.5 - Hyperlipidemia, unspecified Status: Chronic (4) Atrial flutter Code(s): I48.92 - Unspecified atrial flutter Status: Acute <AmadofeliciaKev barry - 07/19/18 17:25> (1) Altered mental status Code(s): R41.82 - Altered mental status, unspecified Status: Acute Plan: 73 yo male smoker who presents with unintelligible speech and the inability to follow commands. There is no evidence of carotid stenosis via neck CTA. There is no evidence of ischemic or hemorrhagic changes in CT imaging; however, MRI brain showing acute infarct of left mid-parietal lobe in distribution of left MCA. 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 -Consult neurology, appreciate recs -MRI results as above -Allow for permissive HTN 24 hours -Lipid panel with chol 172, LDL 124, HDL 33.8, Trig 88, ratio 5.08 -Neuro checks Q2HX12, Q4H -PT/OT assessment pending -Speech therapy cleared for soft mechanical diet Medications: -Start Atorvastatin 40 mg HS -Start ASA 81 mg daily -Continue Metoprolol succinate 50 mg daily due to Aflutter -Restart Lisinopril 10 mg daily (2) Hypertension Code(s): I10 - Essential (primary) hypertension Status: Chronic Plan: - Restart home lisinopril 10 mg daily -Keep SBP <180 and DBP<100 (3) Hyperlipidemia Code(s): E78.5 - Hyperlipidemia, unspecified Status: Chronic Plan: -Patient was not on a statin at home. -Lipid panel with results as above - Atorvastatin 40 mg with a goal of LDL 40 (4) Atrial flutter Code(s): I48.92 - Unspecified atrial flutter Status: Acute Plan: Patient with rate controlled atrial flutter on EKG. - Cardiology consult, appreciate recs - Patient has metoprolol as a home medication, but has not been on the medication for about 5 days. Will restart metoprolol per cardiology recommendations due to atrial flutter. <Drake BALLESTEROSZi H - 07/19/18 14:31> - Assessment and Plan Fluid: PO fluids Electrolytes: monitor Nutrition: cardiac diet Smoking cessation strongly advised Dispo: CM and medical team to assess whether family is comfortable with pt discharging home from hospital vs [facility]NF/Rehab. Cardiology and Neurology have signed off. Pt SDW Christopher Barajas and Harshal <Drake BALLESTEROSZi H - 07/19/18 14:58> - Attending Attestation The exam, history, and the medical decision-making described in the above note were completed with the assistance of the resident physician. I reviewed and agree with the findings presented. I attest that I had a [id number] encounter with the patient on the same day, and personally performed and documented my assessment and findings in the medical record. Agree with above patient still unable to answer most questions appropriately. Discussed with how he shouldnt be balancing the checkbook anymore etc. Also discussed how much of this is probably permanent. discussing with CM re options for caring for him at home v elsewhere. Restarted lisinopril today and he is now on eliquis and aspirin for the time being, will have only eliquis after one week of aspirin. started aspirin. continue metoprolol. likely d/c tomorrow. <Kev Barajas - 07/19/18 17:25> <Zi Juan III Filed: 07/19/18 14:31> (2) Hypertension Qualifiers: Hypertension type: essential hypertension Qualified Code(s): I10 - Essential (primary) hypertension (3) Hyperlipidemia Qualifiers: Hyperlipidemia type: mixed hyperlipidemia Qualified Code(s): E78.2 - Mixed hyperlipidemia <Kev Barajas Last Filed: 07/19/18 17:25> (2) Hypertension Qualifiers: Hypertension type: essential hypertension Qualified Code(s): I10 - Essential (primary) hypertension (3) Hyperlipidemia Qualifiers: Hyperlipidemia type: mixed hyperlipidemia Qualified Code(s): E78.2 - Mixed hyperlipidemia <Zi Juan III Filed: 07/19/18 14:31> (2) Hypertension Qualifiers: Hypertension type: essential hypertension Qualified Code(s): I10 - Essential (primary) hypertension (3) Hyperlipidemia Qualifiers: Hyperlipidemia type: mixed hyperlipidemia Qualified Code(s): E78.2 - Mixed hyperlipidemia <Kev Barajas Last Filed: 07/19/18 17:25> (2) Hypertension Qualifiers: Hypertension type: essential hypertension Qualified Code(s): I10 - Essential (primary) hypertension (3) Hyperlipidemia Qualifiers: Hyperlipidemia type: mixed hyperlipidemia Qualified Code(s): E78.2 - Mixed hyperlipidemia
[2018-07-19] MEDS ORDERED: Lisinopril 10 MG Tablet PO SCH (15:00)
--- NOTE | 2018-07-19 18:44 | ECHRPT ---
Indication: cva/tia CONCLUSIONS Technically difficult study. Severely dilated left ventricle. The left ventricular systolic function is severely reduced with an estimated ejection fraction in th e range of 25-30%. There is global left ventricular dysfunction. Trace mitral valve regurgitation. BP: / HR: Rhythm: MEASUREMENTS (Male / Female) Normal Values Technical Quality:Technically difficult study 2D ECHO LV Diastolic Diameter PLAX 6.2 cm 4.2 - 5.9 / 3.9 - 5.3 cm LV Systolic Diameter PLAX 5.4 cm IVS Diastolic Thickness 1.0 cm 0.6 - 1.0 / 0.6 - 0.9 cm LVPW Diastolic Thickness 1.0 cm 0.6 - 1.0 / 0.6 - 0.9 cm LV Relative Wall Thickness 0.3 RV Internal Dim ED PLAX 2.6 cm LVOT Diameter 2.2 cm Aortic Root Diameter 2.7 cm LA Systolic Diameter LX 3.0 cm 3.0 - 4.0 / 2.7 - 3.8 cm LV Ejection Fraction MOD BP 35.4 % >= 55 % LV Ejection Fraction MOD 4C 27.4 % LV Ejection Fraction 4C AL 27.3 % LV Ejection Fraction MOD 2C 42.3 % LV Ejection Fraction 2C AL 42.0 % M-MODE Aortic Root Diameter MM 3.6 cm LA Systolic Diameter MM 5.7 cm LA Ao Ratio MM 1.6 AV Cusp Separation MM 2.2 cm DOPPLER AV Peak Velocity 105.0 cm/s AV Peak Gradient 4.4 mmHg Mitral E Point Velocity 91.3 cm/s LV E' Lateral Velocity 4.2 cm/s Mitral E to LV E' Lateral Ratio 21.7 LV E' Septal Velocity 4.1 cm/s Mitral E to LV E' Septal Ratio 22.1 TR Peak Velocity 261.0 cm/s TR Peak Gradient 27.2 mmHg Right Atrial Pressure 10.0 mmHg Pulmonary Artery Systolic Pressu 37.2 mmHg Right Ventricular Systolic Press 37.2 mmHg PV Peak Velocity 30.1 cm/s PV Peak Gradient 0.4 mmHg FINDINGS LEFT VENTRICLE Severely dilated left ventricle. Wall thickness is normal. The left ventricular systolic function is severely reduced with an estimated ejection fraction in th e range of 25-30%. There is global left ventricular dysfunction. RIGHT VENTRICLE The right ventricular size is normal. The right ventricular systoilc function is mildly decreased. LEFT ATRIUM The left atrial size is mildly dilated. RIGHT ATRIUM The right atrial size is normal. ATRIAL SEPTUM Normal atrial septal thickness AORTA The aortic root and proximal ascending aorta are normal in size on limited imaging. MITRAL VALVE Grossly normal mitral valve Trace mitral valve regurgitation. No mitral valve stenosis. AORTIC VALVE Trileaflet aortic valve. No aortic valve stenosis or regurgitation. TRICUSPID VALVE The tricuspid valve is not well visualized. No tricuspid regurgitation. No tricuspid valve stenosis. PULMONARY VALVE No pulmonary valve regurgitation or stenosis. VESSELS The inferior vena cava is normal in size. PERICARDIUM No pericardial effusion. [place] DO (Electronically Signed) Final Date:19 July 2018 18:42
--- NOTE | 2018-07-19 20:06 | MG ---
cc: Yunior Copeland MD DATE OF STUDY: 07/19/2018 EEG RECORD NUMBER: [id number] 8-9 Hz posterior rhythm, 20-40 microvolts, mild slowing left temporal region. Tiny sharp transients occurring at that area off and on. Good EEG variability, reactivity. Good driving with photic stimulation. Single lead EKG showing sinus rhythm, occasional premature contraction. INTERPRETATION: Mild left hemispheric slowing. Clinical correlation. Yunior Copeland MD MG/sj , 07:27 PM , 07:30 PM
[2018-07-20 06:57] LABS: Baso # (Auto) 0.1 th/mm3 (0.0-0.2); Baso % (Auto) 0.5 % (0.0-2.0); Eos # (Auto) 0.1 th/mm3 (0.0-0.4); Eos % (Auto) 1.1 % (0.0-4.0); Hematocrit 44.4 % (39.0-51.0); Hemoglobin 14.7 gm/dL (13.0-17.0); Lymph # (Auto) 1.3 th/mm3 (1.0-4.8); Lymph % (Auto) 11.6 % (9.0-44.0); Mean Corpuscular HGB Conc 33.2 % (32.0-36.0); Mean Corpuscular Hemoglobin 30.8 pg (27.0-34.0); Mean Corpuscular Volume 92.8 fL (80.0-100.0); Mean Platelet Volume 8.4 fL (7.0-11.0); Mono # (Auto) 0.9 th/mm3 (0.0-0.9); Mono % (Auto) 8.1 % (0.0-8.0); Neut % (Auto) 78.7 % (16.0-70.0); Platelet Count 251 th/mm3 (150-450); Red Blood Count 4.78 mil/mm3 (4.50-5.90); Red Cell Distribution Width 13.9 % (11.6-17.2); White Blood Count 11.4 th/mm3 (4.0-11.0)
[2018-07-20 07:19] LABS: Anion Gap 9 meq/L (5-15); Blood Urea Nitrogen 14 mg/dL (7-18); Calcium 7.8 mg/dL (8.5-10.1); Carbon Dioxide 22.9 meq/L (21.0-32.0); Chloride 112 meq/L (98-107); Glomerular Filtration Rate Greater Than 89 mL/min (>89); Glucose,Random 91 mg/dL (74-106); Potassium 3.9 meq/L (3.5-5.1); Sodium 144 meq/L (136-145)
--- NOTE | 2018-07-20 08:30 | P.PNCA ---
Subjective Interval history: Denies CP, dyspnea, palpitations, dizziness, PND. Medications and Allergies Active Medications: Active Medications Acetaminophen (Tylenol) 650 mg PO Q4H PRN PRN Reason: Temp > 100.4 Apixaban (Eliquis) 5 mg PO BID ON LICENSE OF [facility] Last Admin: 07/19/18 20:47 Dose: 5 mg Aspirin (Ecotrin) 81 mg PO DAILY ON LICENSE OF [facility] Last Admin: 07/19/18 08:28 Dose: 81 mg Atorvastatin Calcium (Lipitor) 40 mg PO HS ON LICENSE OF [facility] Last Admin: 07/19/18 20:47 Dose: 40 mg Lisinopril (Prinivil) 10 mg PO DAILY ON LICENSE OF [facility] Last Admin: 07/19/18 15:38 Dose: 10 mg Metoprolol Succinate (Toprol Xl) 50 mg PO DAILY ON LICENSE OF [facility] Last Admin: 07/19/18 08:28 Dose: 50 mg Nitroglycerin (Nitrostat Sl (Override)) 0.4 mg SL Q5M PRN PRN Reason: Chest Pain Ondansetron HCl (Zofran Inj) 4 mg IV.PUSH Q6H PRN PRN Reason: NAUSEA OR VOMITING Senna/Docusate Sodium (Devi-Colace) 1 tab PO BID ON LICENSE OF [facility] Last Admin: 07/19/18 20:51 Dose: 1 tab Allergies Allergy/AdvReac Type Severity Reaction Status Date / Time meperidine AdvReac Intermediate Nausea/Vomi Verified 07/18/18 16:02 ting Home Medications Medication Instructions Recorded Confirmed Type aspirin 81 mg PO DAILY 07/18/18 07/18/18 History lisinopril 10 mg PO DAILY 07/18/18 07/18/18 History metoprolol succinate 50 mg PO DAILY 07/18/18 07/18/18 History nitroglycerin 0.4 mg SUBLINGUAL Q5-15M PRN 07/18/18 07/18/18 History Physical Exam Vital signs: Vital Signs 07/19/18 12:00 07/19/18 16:00 07/19/18 19:59 Temperature 97.4 F L 97.9 F 97.7 F Pulse Rate 79 101 H 75 Respiratory Rate 18 17 20 Blood Pressure 153/103 H 154/96 H 143/51 H Pulse Oximetry 90 L 95 94 L 07/19/18 20:00 07/19/18 23:07 07/20/18 01:00 Temperature 98.8 F Pulse Rate 75 75 72 Respiratory Rate 20 Blood Pressure 155/102 H 149/78 H Pulse Oximetry 94 L 07/20/18 04:00 Temperature 98.5 F Pulse Rate 76 Respiratory Rate 20 Blood Pressure 148/94 H Pulse Oximetry 94 L Intake & Output 07/19/18 07/20/18 07/20/18 18:59 06:59 18:59 Intake Total 1480 / 1480 480 / 480 Output Total 125 / 125 675 / 675 Balance 1355 / 1355 -195 / -195 Weight 84.1 kg Intake: IV 1000 / 1000 NS Inj 1,000 ML @ 70 mls/hr IV. 1000 / 1000 CONT .[id number] [facility] Rx#:[id number] Oral 480 / 480 480 / 480 Output: Urine 125 / 125 675 / 675 Other: # Bowel Movements 0 - Constitutional no acute distress - Routine Neck Exam Absent: JVD - Routine Respiratory Exam Present: CTA bilaterally - Routine Cardiovascular Exam Present: RRR, S1, S2. Absent: murmur, gallop - Routine Abdominal Exam Present: soft, normoactive bowel sounds. Absent: tenderness, organomegaly - Routine Extremities Exam Absent: cyanosis, clubbing, edema Results 07/20/18 06:14 07/20/18 06:14 Cardiac Enzymes 07/18/18 07/19/18 Range/Units 11:45 06:45 AST 19 (15-37) U/L Troponin I Less than 0.02 L (0.02-0.05) ng/mL Coagulation 07/18/18 Range/Units 11:45 PT 10.8 (9.8-11.6) sec APTT 30.6 (23.4-31.7) sec Lipids 07/19/18 Range/Units 06:45 Triglycerides 70 (42-150) mg/dL Cholesterol 172 (120-200) mg/dL HDL Cholesterol 33.8 L (40.0-60.0) mg/dL Cholesterol/HDL Ratio 5.08 Ratio CBC 07/18/18 07/19/18 07/20/18 Range/Units 11:45 06:45 06:14 WBC 8.7 11.3 H 11.4 H (4.0-11.0) th/mm3 RBC 4.81 4.68 4.78 (4.50-5.90) mil/mm3 Hgb 15.0 14.7 14.7 (13.0-17.0) gm/dL Hct 45.1 43.7 44.4 (39.0-51.0) % Plt Count 278 253 251 (150-450) th/mm3 Neut # (Auto) 6.6 9.2 H 9.0 H (1.8-7.7) th/mm3 Lymph # (Auto) 1.3 1.0 1.3 (1.0-4.8) th/mm3 [place] # (Auto) 0.6 0.9 0.9 (0.0-0.9) th/mm3 Eos # (Auto) 0.1 0.1 0.1 (0.0-0.4) th/mm3 Baso # (Auto) 0.1 0.0 0.1 (0.0-0.2) th/mm3 Comprehensive Metabolic Panel 07/18/18 07/19/18 07/20/18 Range/Units 11:45 06:45 06:14 Sodium 142 141 144 (136-145) meq/L Potassium 4.5 4.2 3.9 (3.5-5.1) meq/L Chloride 110 H 110 H 112 H (98-107) meq/L Carbon Dioxide 26.8 22.0 22.9 (21.0-32.0) meq/L BUN 14 14 14 (7-18) mg/dL Creatinine 0.94 0.78 0.83 (0.60-1.30) mg/dL Calcium 8.1 L 7.8 L 7.8 L (8.5-10.1) mg/dL AST 19 (15-37) U/L ALT 15 (12-78) U/L Alkaline Phosphatase 94 (45-117) U/L Total Protein 6.6 (6.4-8.2) g/dL Albumin 3.1 L (3.4-5.0) g/dL Intake and Output 07/19/18 07/20/18 07/20/18 22:59 06:59 14:59 Intake Total 1480 / 1480 480 / 480 Output Total 125 / 125 675 / 675 Balance 1355 / 1355 -195 / -195 Intake: IV 1000 / 1000 NS Inj 1,000 ML @ 70 mls/hr IV. 1000 / 1000 CONT .[id number] ON LICENSE OF [facility] Rx#:[id number] Oral 480 / 480 480 / 480 Output: Urine 125 / 125 675 / 675 Other: # Bowel Movements 0 Weight 84.1 kg - Imaging and Cardiology Imaging: Impressions Head MRI 07/18/18 00:00 CONCLUSION: 1. Focal cortical signal abnormality is noted involving the left mid parietal lobe on the diffusion-weighted images indicating acute infarct in the left middle cerebral artery distribution. More subtle signal abnormality is noted involving the left posterior temporal cortex also within the left middle cerebral artery distribution. 2. Severe periventricular and subcortical white matter small vessel ischemic changes bilaterally. 3. No acute hemorrhage, midline shift or extra-axial bleed. 4. Scattered old tiny lacunar infarcts within the bilateral basal ganglia. Chest X-Ray 07/18/18 11:41 CONCLUSION: Chronic interstitial changes within the parenchyma and cardiomegaly. No acute abnormality. Head CT 07/18/18 11:41 CONCLUSION: 1. Microvascular ischemic demyelinative change. No acute abnormality identified by noncontrast CT imaging. Report was called by [Dr. Lobo Gauthier to Dr. Mccarthy at 12:12 PM] Head CTA 07/18/18 11:41 CONCLUSION: 1. No evidence of carotid/vertebral stenosis or occlusion 2. Nonspecific mediastinal lymphadenopathy. 3. Emphysematous changes within the visualized lung apices. Report was called by Dr. Dickerson] to Dr. Copeland at 12:30 PM on 07/18/2018. Neck CTA 07/18/18 11:41 CONCLUSION: No carotid stenosis CT CAD 07/18/18 11:42 CONCLUSION: Physiological brain perfusion parameters with RAPID analysis as above. Study demonstrates a small area of elevated mean cortical transit time in the right posterior parietal cortex. This would indicate a small area of extremely cortex correspond to this region. The decision for consideration of therapy is multi factorial and multi disciplinary relying on subjective and objective clinical data. This data is not construed or intended to be the sole determinant of treatment eligibility. Head MRA 07/18/18 16:54 CONCLUSION: 1. Negative MRA of the [place]. Assessment and Plan - Assessment (1) Atrial fibrillation and flutter Code(s): I48.91 - Unspecified atrial fibrillation; I48.92 - Unspecified atrial flutter Status: Acute Plan: Remains in atrial fib/flutter. HR's overall acceptable. Patient asymptomatic. One joyce of wide complex tachycardia, likely aberrantly conducted atrial fib/ flutter. Suspect his acute CVA cardioembolic in etiology. Recommend continue Eliquis, metoprolol. His thromboembolic risk needless to say is very high. OK to discharge from cardiac standpoint, f/u with me or one of our doctors in [place] where patient resides. (2) Dilated cardiomyopathy Code(s): I42.0 - Dilated cardiomyopathy Status: Acute Plan: EF 25-30% with dilated LV by echo. Overall appears compensated. Recommend increase beta mary, UZIEL-I dosing, repeat echo in 90 days. (3) Coronary artery disease Code(s): I25.10 - Atherosclerotic heart disease of [place] coronary artery without angina pectoris Status: Chronic Plan: Stable. No evidence for ACS. No recent angina symptoms. Continue beta mary , aspirin. (4) Hypertension Code(s): I10 - Essential (primary) hypertension Status: Chronic Plan: Hypertensive. Recommend increase beta mary, UZIEL-I doses. (5) Hyperlipidemia Code(s): E78.5 - Hyperlipidemia, unspecified Status: Chronic Plan: Poor lipid profile. Recommend statin therapy. - Plan Code Status: full code Discussed Condition With: patient and daughter (3) Coronary artery disease Qualifiers: Coronary Disease-Associated Artery/Lesion type: [place] artery [place] vs. transplanted heart: [place] heart Associated angina: without angina Qualified Code(s): I25.10 - Atherosclerotic heart disease of [place] coronary artery without angina pectoris (4) Hypertension Qualifiers: Hypertension type: essential hypertension Qualified Code(s): I10 - Essential (primary) hypertension (5) Hyperlipidemia Qualifiers: Hyperlipidemia type: mixed hyperlipidemia Qualified Code(s): E78.2 - Mixed hyperlipidemia
[2018-07-20] MEDS ORDERED: Lisinopril 10 MG Tablet PO SCH (08:31)
[2018-07-20 08:34] VITALS: BP 157/80; PULSE 75; RESP 16; TEMP 97.3; O2SAT 95
--- NOTE | 2018-07-20 09:05 | P.PNFP ---
Subjective Interval history: Patient seen and examined at bedside this morning. His daughter was also present and reports that he is much better than yesterday. Patient will be going home with his family upon discharge. A [id number] will be completed for occupational therapy, physical therapy, and speech therapy. Patient was able to follow commands this morning and participate in examination. He still has some word finding troubles at times. He denies chest pain, shortness of breath, dizziness, nausea, diarrhea. <Ct Braswell - 07/20/18 11:08> Results - Labs Result diagrams: 07/20/18 06:14 07/20/18 06:14 <Kev Barajas - 07/20/18 11:47> Abnormal lab results 07/20/18 07/20/18 Range/Units 06:14 06:14 WBC 11.4 H (4.0-11.0) th/mm3 Neut % (Auto) 78.7 H (16.0-70.0) % [place] % (Auto) 8.1 H (0.0-8.0) % Neut # (Auto) 9.0 H (1.8-7.7) th/mm3 Chloride 112 H (98-107) meq/L Calcium 7.8 L (8.5-10.1) mg/dL Short CBC 07/20/18 Range/Units 06:14 WBC 11.4 H (4.0-11.0) th/mm3 Hgb 14.7 (13.0-17.0) gm/dL Hct 44.4 (39.0-51.0) % Plt Count 251 (150-450) th/mm3 [facility] 07/20/18 06:14 Sodium 144 Potassium 3.9 Chloride 112 H Carbon Dioxide 22.9 BUN 14 Creatinine 0.83 Calcium 7.8 L <Kev Barajas - 07/20/18 11:47> Abnormal lab results 07/20/18 07/20/18 Range/Units 06:14 06:14 WBC 11.4 H (4.0-11.0) th/mm3 Neut % (Auto) 78.7 H (16.0-70.0) % [place] % (Auto) 8.1 H (0.0-8.0) % Neut # (Auto) 9.0 H (1.8-7.7) th/mm3 Chloride 112 H (98-107) meq/L Calcium 7.8 L (8.5-10.1) mg/dL Short CBC 07/20/18 Range/Units 06:14 WBC 11.4 H (4.0-11.0) th/mm3 Hgb 14.7 (13.0-17.0) gm/dL Hct 44.4 (39.0-51.0) % Plt Count 251 (150-450) th/mm3 BMP 07/20/18 06:14 Sodium 144 Potassium 3.9 Chloride 112 H Carbon Dioxide 22.9 BUN 14 Creatinine 0.83 Calcium 7.8 L <Ct Braswell - 07/20/18 09:05> Physical Exam Vital signs: Vital Signs 07/19/18 12:00 07/19/18 16:00 07/19/18 19:59 Temperature 97.4 F L 97.9 F 97.7 F Pulse Rate 79 101 H 75 Respiratory Rate 18 17 20 Blood Pressure 153/103 H 154/96 H 143/51 H Pulse Oximetry 90 L 95 94 L 07/19/18 20:00 07/19/18 23:07 07/20/18 01:00 Temperature 98.8 F Pulse Rate 75 75 72 Respiratory Rate 20 Blood Pressure 155/102 H 149/78 H Pulse Oximetry 94 L 07/20/18 04:00 07/20/18 08:00 07/20/18 09:00 Temperature 98.5 F 97.3 F L Pulse Rate 76 75 75 Respiratory Rate 20 16 Blood Pressure 148/94 H 157/80 H Pulse Oximetry 94 L 95 Intake & Output 07/19/18 07/20/18 07/20/18 18:59 06:59 18:59 Intake Total 1480 / 1480 480 / 480 Output Total 125 / 125 675 / 675 Balance 1355 / 1355 -195 / -195 Weight 84.1 kg Intake: IV 1000 / 1000 NS Inj 1,000 ML @ 70 mls/hr IV. 1000 / 1000 CONT .[id number] [facility] Rx#:[id number] Oral 480 / 480 480 / 480 Output: Urine 125 / 125 675 / 675 Other: # Bowel Movements 0 <Kev Barajas - 07/20/18 11:47> Vital Signs 07/19/18 12:00 07/19/18 16:00 07/19/18 19:59 Temperature 97.4 F L 97.9 F 97.7 F Pulse Rate 79 101 H 75 Respiratory Rate 18 17 20 Blood Pressure 153/103 H 154/96 H 143/51 H Pulse Oximetry 90 L 95 94 L 07/19/18 20:00 07/19/18 23:07 07/20/18 01:00 Temperature 98.8 F Pulse Rate 75 75 72 Respiratory Rate 20 Blood Pressure 155/102 H 149/78 H Pulse Oximetry 94 L 07/20/18 04:00 07/20/18 08:00 Temperature 98.5 F 97.3 F L Pulse Rate 76 75 Respiratory Rate 20 16 Blood Pressure 148/94 H 157/80 H Pulse Oximetry 94 L 95 Intake & Output 07/19/18 07/20/18 07/20/18 18:59 06:59 18:59 Intake Total 1480 / 1480 480 / 480 Output Total 125 / 125 675 / 675 Balance 1355 / 1355 -195 / -195 Weight 84.1 kg Intake: IV 1000 / 1000 NS Inj 1,000 ML @ 70 mls/hr IV. 1000 / 1000 CONT .[id number] [facility] Rx#:[id number] Oral 480 / 480 480 / 480 Output: Urine 125 / 125 675 / 675 Other: # Bowel Movements 0 <Ct Braswell - 07/20/18 09:05> Narrative: GENERAL: in NAD, reading book while lying in bed. follows commands and participates in the neurological exam. SKIN: Warm and dry. No rash or lesions. HEAD: Atraumatic. Normocephalic. EYES: Pupils equal and round. No scleral icterus. ENT: No nasal discharge. Mucous membranes pink and moist. NECK: Trachea midline. No JVD. CARDIOVASCULAR: Irregular, no murmurs appreciated. RESPIRATORY: Clear to auscultation bilaterally. No wheeze, rales or rhonchi. GASTROINTESTINAL: Abdomen soft, non-tender, nondistended. Positive bowel sounds. MUSCULOSKELETAL: Extremities without clubbing, cyanosis, or edema. No obvious deformities. NEUROLOGICAL: Awake and alert. Reports mild decreased sensation on the right side; can speak normally, although at times his responses do not make sense. No facial asymmetry, PERRLA/EOMI, absent pronator drift. <Misha Braswella A - 07/20/18 11:08> Assessment and Plan - Assessment (1) Altered mental status Code(s): R41.82 - Altered mental status, unspecified Status: Acute (2) Hypertension Code(s): I10 - Essential (primary) hypertension Status: Chronic (3) Hyperlipidemia Code(s): E78.5 - Hyperlipidemia, unspecified Status: Chronic (4) Atrial flutter Code(s): I48.92 - Unspecified atrial flutter Status: Acute <Kev Barajas - 07/20/18 11:47> (1) Altered mental status Code(s): R41.82 - Altered mental status, unspecified Status: Acute Plan: 73 yo male smoker who presents with unintelligible speech and the inability to follow commands. There is no evidence of carotid stenosis via neck CTA. There is no evidence of ischemic or hemorrhagic changes in CT imaging; however, MRI brain showing acute infarct of left mid-parietal lobe in distribution of left MCA. 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 -Consult neurology, appreciate recs -MRI results as above -Control BP <180/100 -Lipid panel with chol 172, LDL 124, HDL 33.8, Trig 88, ratio 5.08 -Neuro checks Q2HX12, Q4H -PT/OT recommend therapy as outpatient -Speech therapy cleared for soft mechanical diet Medications: -Continue Atorvastatin 40 mg HS -Continue ASA 81 mg daily -Continue Metoprolol succinate 50 mg daily due to Aflutter -Continue Lisinopril 10 mg daily (2) Hypertension Code(s): I10 - Essential (primary) hypertension Status: Chronic Plan: - Continue home lisinopril 10 mg daily. Blood pressures 140-150s/80-90s. -Keep SBP <180 and DBP<100 (3) Hyperlipidemia Code(s): E78.5 - Hyperlipidemia, unspecified Status: Chronic Plan: -Patient was not on a statin at home. -Lipid panel with results as above -Atorvastatin 40 mg with a goal of LDL<40 (4) Atrial flutter Code(s): I48.92 - Unspecified atrial flutter Status: Acute Plan: Patient with rate controlled atrial flutter on EKG. - Cardiology consult, appreciate recs - Continue metoprolol 100 mg daily <Ct Braswell - 07/20/18 11:13> - Assessment and Plan Fluid: PO fluids Electrolytes: monitor Nutrition: cardiac diet Smoking cessation strongly advised Dispo: Patient will be discharged today with home health OT, PT, speech. Pt SDW Christopher Barajas and Harshal <Ct Braswell - 07/20/18 11:08> - Attending Attestation The exam, history, and the medical decision-making described in the above note were completed with the assistance of the resident physician. I reviewed and agree with the findings presented. I attest that I had a [id number] encounter with the patient on the same day, and personally performed and documented my assessment and findings in the medical record. Patient seems better today. Although he has some difficulty with word finding and word confusion I was able to have what seemed like a meaningful conversation today. Has new diagnosis of HFrEF. continuing same medications but may need outpatient uptitration of beta mary or addition of spironolactone depending on symptoms/ HR/BP. Talked with daughter about therapies from here, there was some confusion that he couldnt get ST at home but after talking with CM today learned this was not true, so we will work to get them set up with HH/Pt/Ot/St. <Kev Barajas - 07/20/18 11:47> <Ct Braswell - Last Filed: 07/20/18 11:13> (2) Hypertension Qualifiers: Hypertension type: essential hypertension Qualified Code(s): I10 - Essential (primary) hypertension (3) Hyperlipidemia Qualifiers: Hyperlipidemia type: mixed hyperlipidemia Qualified Code(s): E78.2 - Mixed hyperlipidemia <Kev Barajas - Last Filed: 07/20/18 11:47> (2) Hypertension Qualifiers: Hypertension type: essential hypertension Qualified Code(s): I10 - Essential (primary) hypertension (3) Hyperlipidemia Qualifiers: Hyperlipidemia type: mixed hyperlipidemia Qualified Code(s): E78.2 - Mixed hyperlipidemia <Ct Braswell - Last Filed: 07/20/18 11:13> (2) Hypertension Qualifiers: Hypertension type: essential hypertension Qualified Code(s): I10 - Essential (primary) hypertension (3) Hyperlipidemia Qualifiers: Hyperlipidemia type: mixed hyperlipidemia Qualified Code(s): E78.2 - Mixed hyperlipidemia <Kev Barajas K - Last Filed: 07/20/18 11:47> (2) Hypertension Qualifiers: Hypertension type: essential hypertension Qualified Code(s): I10 - Essential (primary) hypertension (3) Hyperlipidemia Qualifiers: Hyperlipidemia type: mixed hyperlipidemia Qualified Code(s): E78.2 - Mixed hyperlipidemia
[2018-07-20] MEDS: Senna/Docusate Sodium 8.6/50 MG Tablet PO SCH (09:18)
--- NOTE | 2018-07-20 10:40 | P.DCO ---
- Physical Therapy Order: Evaluate and treat, Improve ambulation, Strength and gait training - Occupational Therapy Order: Evaluate and treat, Improve ADL, Gross motor coordination, Fine motor coordination - Speech Therapy Order: To improve: Speech and communication skills, Cognitive skills - Home Health Nursing Order: Medical education, Signs/symptoms of disease process, CHF education, Medication education-adverse effect - Case Management Consult Case Management Consult-Home Health: Yes - Certification I have seen patient Damien Rivera on 07/20/18. My clinical findings support the need for the requested home health care services because: CVA Impaired cognition/judgement, High risk of falls I certify that my clinical findings support that this patient is homebound because: acute CVA Impaired cognitive ability/safety, Unsafe to leave home unassisted
--- NOTE | 2018-07-20 11:13 | P.DS ---
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 History is provided by as the patient is acutely confused. He responds to questions but the answers are inappropriate. Patient was in his normal state of health at 9:30 PM when his last saw him. She reports that he woke up around 8 AM and appeared to be normal when the went back into his bedroom about 10:30 AM he just kept repeating "Are you okay? " did not notice any other residual deficits. Patient had a stroke 4 years ago with residual deficit of some slurred speech. He has had 4 myocardial infarctions with the last one being 8-10 years ago with an unknown arrhythmia. Of note, the patient recently switched primary care providers, and as a result of the private branch exchange operator he did not get his meds refilled. He has been out of his medications for about 5 days. Primary care Provider: [facility] in [place] PMHx: CVA MO osteoarthritis of spine and chronic pain HTN HLD PSurgHx: Emergency hernia surgery 2 years ago Back surgery at age 40 Meds: Plavix Statin BP meds [place]: Demerol PFamHx: Mother - hx of polio, of a CVA Father - polio SocHx: Semi-retired on board [employer] Lives in [place] Last long trip in November EtOH - 1 drink/mo Tpbacco - 1/2ppd x40 years Drugs - denies DS: Diagnosis - Discharge Diagnosis (1) Altered mental status Status: Acute (2) Hypertension Status: Chronic (3) Hyperlipidemia Status: Chronic (4) Atrial flutter Status: Acute DS: Medications - Discharge Medications Prescriptions: apixaban [Eliquis] 5 mg PO BID 60 Days #240 tab atorvastatin 40 mg PO HS #60 tab lisinopril 10 mg PO DAILY 30 Days #30 tab metoprolol succinate 50 mg PO DAILY 30 Days #30 tab DS: Summary Hospital Course: Patient was found to have a left posterior MCA which correlated with his comprehensive aphasia on admission. During hospitalization, his aphasia improved but not back to his baseline. He was started on Eliquis 5 mg p.o. twice daily, atorvastatin and aspirin per neurology. He will follow with neurology as an outpatient. Patient was also found to have atrial fibrillation\\ flutter. Cardiology was consulted and recommended to continue his metoprolol. An echo was also completed to assess his left ventricular function and he had a EF of 25-30%. With his newfound congestive heart failure, he will be followed up with cardiology as outpatient. Patient started occupational therapy, physical therapy, speech therapy and will continue these at home as an outpatient. - Time Spent with Patient Total time spent providing and/or coordinating discharge services: Greater than 30 minutes - Quality: Stroke Last date observed well: 07/17/18 Last time observed well: 21:00 - Quality: VTE Deep Vein Thrombosis/Pulmonary Embolism Present on Admission: No Exam Vital signs: Vital Signs 07/19/18 12:00 07/19/18 16:00 07/19/18 19:59 Temperature 97.4 F L 97.9 F 97.7 F Pulse Rate 79 101 H 75 Respiratory Rate 18 17 20 Blood Pressure 153/103 H 154/96 H 143/51 H Pulse Oximetry 90 L 95 94 L 07/19/18 20:00 07/19/18 23:07 07/20/18 01:00 Temperature 98.8 F Pulse Rate 75 75 72 Respiratory Rate 20 Blood Pressure 155/102 H 149/78 H Pulse Oximetry 94 L 07/20/18 04:00 07/20/18 08:00 Temperature 98.5 F 97.3 F L Pulse Rate 76 75 Respiratory Rate 20 16 Blood Pressure 148/94 H 157/80 H Pulse Oximetry 94 L 95 Intake & Output 07/19/18 07/20/18 07/20/18 18:59 06:59 18:59 Intake Total 1480 / 1480 480 / 480 Output Total 125 / 125 675 / 675 Balance 1355 / 1355 -195 / -195 Weight 84.1 kg Intake: IV 1000 / 1000 NS Inj 1,000 ML @ 70 mls/hr IV. 1000 / 1000 CONT .[id number] [facility] Rx#:[id number] Oral 480 / 480 480 / 480 Output: Urine 125 / 125 675 / 675 Other: # Bowel Movements 0 Results Procedures completed during hospitalization: Echo: CONCLUSIONS Technically difficult study. Severely dilated left ventricle. The left ventricular systolic function is severely reduced with an estimated ejection fraction in the range of 25-30%. There is global left ventricular dysfunction. Trace mitral valve regurgitation. Labs on day of discharge: Labs from last 24 hours 07/20/18 07/20/18 06:14 06:14 WBC 11.4 H RBC 4.78 Hgb 14.7 Hct 44.4 MCV 92.8 MCH 30.8 MCHC 33.2 RDW 13.9 Plt Count 251 MPV 8.4 Neut % (Auto) 78.7 H Lymph % (Auto) 11.6 [place] % (Auto) 8.1 H Eos % (Auto) 1.1 Baso % (Auto) 0.5 Neut # (Auto) 9.0 H Lymph # (Auto) 1.3 [place] # (Auto) 0.9 Eos # (Auto) 0.1 Baso # (Auto) 0.1 WBC Differential . Differential Comment Auto diff final Sodium 144 Potassium 3.9 Chloride 112 H Carbon Dioxide 22.9 Anion Gap 9 BUN 14 Creatinine 0.83 Estimated GFR Greater than 89 Random Glucose 91 Calcium 7.8 L - Impressions ITS Impressions Head MRI 07/18/18 00:00 CONCLUSION: 1. Focal cortical signal abnormality is noted involving the left mid parietal lobe on the diffusion-weighted images indicating acute infarct in the left middle cerebral artery distribution. More subtle signal abnormality is noted involving the left posterior temporal cortex also within the left middle cerebral artery distribution. 2. Severe periventricular and subcortical white matter small vessel ischemic changes bilaterally. 3. No acute hemorrhage, midline shift or extra-axial bleed. 4. Scattered old tiny lacunar infarcts within the bilateral basal ganglia. Chest X-Ray 07/18/18 11:41 CONCLUSION: Chronic interstitial changes within the parenchyma and cardiomegaly. No acute abnormality. Head CT 07/18/18 11:41 CONCLUSION: 1. Microvascular ischemic demyelinative change. No acute abnormality identified by noncontrast CT imaging. Report was called by [Dr. Lobo Gauthier to Dr. Mccarthy at 12:12 PM] Head CTA 07/18/18 11:41 CONCLUSION: 1. No evidence of carotid/vertebral stenosis or occlusion 2. Nonspecific mediastinal lymphadenopathy. 3. Emphysematous changes within the visualized lung apices. Report was called by Dr. Goodwin to Dr. Copeland at 12:30 PM on 07/18/2018. Neck CTA 07/18/18 11:41 CONCLUSION: No carotid stenosis CT CAD 07/18/18 11:42 CONCLUSION: Physiological brain perfusion parameters with RAPID analysis as above. Study demonstrates a small area of elevated mean cortical transit time in the right posterior parietal cortex. This would indicate a small area of extremely cortex correspond to this region. The decision for consideration of therapy is multi factorial and multi disciplinary relying on subjective and objective clinical data. This data is not construed or intended to be the sole determinant of treatment eligibility. Head MRA 07/18/18 16:54 CONCLUSION: 1. Negative MRA of the [place]. Discharge Plan - Discharge Disposition Patient Disposition: 01 Discharge Home - Discharge Condition Condition: Stable - Discharge Order Discharge Orders: Discharge Order (Routine); Ordered 07/20/18 Ordered By: Ct Braswell Cardiology Clear for Discharge (Routine); Ordered 07/20/18 Ordered By: Néstor Mcginnis - Physicians Team Primary Care Provider: UNKNOWN, Attending Provider: Kev Barajas Other Providers: Yunior Copeland MD ; Néstor Mcginnis MD
== END 2018-07-20 12:11 | disposition home or self-care (01) ==
LOC: NEPC 11:33 → NEDA 13:57 → N04 19:46
PROVIDERS: ADMIT Family Medicine; ATTEND Family Medicine